=== PATIENT | female | born 1955 | race Caucasian/White ===

== ENCOUNTER 2017-06-06 21:42 | Inpatient (IN) | payer MEDICARE, OTHER ==
[~2017-06-06] VITALS: Ht 160 cm; Wt 59.6 kg
[~2017-06-06 21:42] MED LIST: ALBU90OI INH; ALENDRONATE SOD35 MG PO; AMIT50 PO; Accuneb0.63 MG/3 INH; BUDE6HFA INH; CHOL10002 PO; CIPR500 PO; CITA20 PO; CRUTCH4 USE; DULO60 PO; ERYSTE250 PO; FISH1000; Flonase 0.05% N16 GM; Fosamax70 MG PO; HYDACE5 PO; HYDGUAL120 PO; LOSA25 PO; LOSA50 PO; Lovastatin10 MG PO; MECL25 PO; MELO7.5 PO; Mobic15 MG PO; Multiple Vitam1 EAC1 PO; RESPIMAT; SULTRIDS PO; TRAM50 PO; VITAMIN D-32000 UNIT; Vitamin C100 M1
[2017-06-06 22:33] LABS: BASOPHILS ABSOLUTE AUTO 0.09 K/mm3 (0.00-0.23); BASOPHILS PERCENT AUTO 1 % (0-2); EOSINOPHILS ABSOLUTE AUTO 0.34 K/mm3 (0.00-0.68); EOSINOPHILS PERCENT AUTO 4 % (0-6); Hemoglobin 13.8 g/dL (11.5-16.0); IMMATURE GRAN ABSOLUTE AUTO 0.03 K/mm3 (0.00-0.10); IMMATURE GRAN PERCENT AUTO 0 % (0-1); LYMPHOCYTES PERCENT AUTO 20 % (21-46); MONOCYTES ABSOLUTE AUTO 0.81 K/mm3 (0.16-1.47); MONOCYTES PERCENT AUTO 8 % (4-13); Mean Corpuscular HGB 32.5 pg (26.0-34.0); Mean Corpuscular HGB Conc 33.7 g/dL (31.5-36.5); Mean Corpuscular Volume 97 fL (80-100); Mean Platelet Volume 10.6 fL (9.1-12.4); NEUTROPHILS PERCENT AUTO 67 % (41-73); Platelet Count 231 K/mm3 (150-400); RDW Coefficient Variation 12.8 % (11.7-14.2); RDW Standard Deviation 46.1 fL (35.1-46.3); Red Blood Cell Count 4.24 M/mm3 (3.80-5.20); White Blood Cell Count 9.67 K/mm3 (4.00-11.30)
[2017-06-06 22:58] LABS: Alanine Aminotransfer (ALT/SGP 23 U/L (12-78); Albumin/Globulin Ratio 1.1 (0.8-1.8); Alk Phos 100 U/L (50-136); Anion Gap 8 mmol/L (6-16); Aspartate Aminotrans (AST/SGOT 20 U/L (12-37); Bilirubin, Total 0.2 mg/dL (0.1-1.0); Blood Urea Nitrogen 12 mg/dL (8-24); Bun/Creatinine Ratio 17.3 (12.0-20.0); CO2, Blood 25 mmol/L (21-32); Calcium, Blood 8.5 mg/dL (8.5-10.1); Chloride, Blood 107 mmol/L (98-108); Creatinine, Blood 0.69 mg/dL (0.40-1.00); Globulin, Blood 3.7 g/dL (2.2-4.0); Glomerular Filtration Rate >60 (60-); Glucose, Blood 102 mg/dL (70-99); Potassium, Blood 3.4 mmol/L (3.5-5.5); Sodium, Blood 140 mmol/L (136-145); Total Protein, Blood 7.7 g/dL (6.4-8.2); Troponin I <0.015 ng/mL (0.000-0.040)
[2017-06-06] MEDS ORDERED: RANI150 PO (23:03)
[2017-06-06 23:49] LABS: Bicarbonate Venous 23.9 mmol/L (24.0-30.0); PCO2 Venous 36.7 mmHg (38-42); PO2 Venous 85.9 mmHg (38-42); pH Blood Venous 7.42 (7.34-7.37)
[2017-06-07 09:55] LABS: Influenza A Negative (NEGATIVE); Influenza B Negative (NEGATIVE)
[2017-06-07 11:31] LABS: BASOPHILS ABSOLUTE AUTO 0.02 K/mm3 (0.00-0.23); BASOPHILS PERCENT AUTO 0 % (0-2); EOSINOPHILS PERCENT AUTO 0 % (0-6); Hematocrit 40.7 % (33.0-51.0); Hemoglobin 13.4 g/dL (11.5-16.0); IMMATURE GRAN ABSOLUTE AUTO 0.06 K/mm3 (0.00-0.10); IMMATURE GRAN PERCENT AUTO 1 % (0-1); LYMPHOCYTES ABSOLUTE AUTO 0.68 K/mm3 (0.84-5.20); LYMPHOCYTES PERCENT AUTO 7 % (21-46); MONOCYTES ABSOLUTE AUTO 0.04 K/mm3 (0.16-1.47); MONOCYTES PERCENT AUTO 0 % (4-13); Mean Corpuscular HGB 31.5 pg (26.0-34.0); Mean Corpuscular HGB Conc 32.9 g/dL (31.5-36.5); Mean Corpuscular Volume 96 fL (80-100); Mean Platelet Volume 11.1 fL (9.1-12.4); NEUTROPHILS ABSOLUTE AUTO 9.07 K/mm3 (1.96-9.15); NEUTROPHILS PERCENT AUTO 92 % (41-73); Platelet Count 235 K/mm3 (150-400); RDW Standard Deviation 45.2 fL (35.1-46.3); Red Blood Cell Count 4.25 M/mm3 (3.80-5.20); White Blood Cell Count 9.87 K/mm3 (4.00-11.30)
[2017-06-07 12:28] LABS: Alanine Aminotransfer (ALT/SGP 22 U/L (12-78); Albumin, Blood 3.9 g/dL (3.4-5.0); Alk Phos 99 U/L (50-136); Anion Gap 13 mmol/L (6-16); Aspartate Aminotrans (AST/SGOT 16 U/L (12-37); Bilirubin, Total 0.3 mg/dL (0.1-1.0); Blood Urea Nitrogen 11 mg/dL (8-24); Bun/Creatinine Ratio 19.8 (12.0-20.0); CO2, Blood 18 mmol/L (21-32); Calcium, Blood 8.9 mg/dL (8.5-10.1); Chloride, Blood 110 mmol/L (98-108); Creatinine, Blood 0.56 mg/dL (0.40-1.00); Globulin, Blood 3.9 g/dL (2.2-4.0); Glomerular Filtration Rate >60 (60-); Glucose, Blood 171 mg/dL (70-99); Potassium, Blood 3.8 mmol/L (3.5-5.5); Sodium, Blood 141 mmol/L (136-145); Total Protein, Blood 7.8 g/dL (6.4-8.2)
[2017-06-08 04:49] LABS: BASOPHILS ABSOLUTE AUTO 0.01 K/mm3 (0.00-0.23); BASOPHILS PERCENT AUTO 0 % (0-2); EOSINOPHILS PERCENT AUTO 0 % (0-6); Hematocrit 38.4 % (33.0-51.0); Hemoglobin 12.6 g/dL (11.5-16.0); IMMATURE GRAN ABSOLUTE AUTO 0.09 K/mm3 (0.00-0.10); IMMATURE GRAN PERCENT AUTO 1 % (0-1); LYMPHOCYTES ABSOLUTE AUTO 0.92 K/mm3 (0.84-5.20); LYMPHOCYTES PERCENT AUTO 8 % (21-46); MONOCYTES ABSOLUTE AUTO 0.27 K/mm3 (0.16-1.47); MONOCYTES PERCENT AUTO 2 % (4-13); Mean Corpuscular HGB 32.1 pg (26.0-34.0); Mean Corpuscular HGB Conc 32.8 g/dL (31.5-36.5); Mean Corpuscular Volume 98 fL (80-100); Mean Platelet Volume 11.3 fL (9.1-12.4); NEUTROPHILS ABSOLUTE AUTO 10.23 K/mm3 (1.96-9.15); NEUTROPHILS PERCENT AUTO 89 % (41-73); Platelet Count 232 K/mm3 (150-400); RDW Coefficient Variation 12.8 % (11.7-14.2); RDW Standard Deviation 45.9 fL (35.1-46.3); Red Blood Cell Count 3.93 M/mm3 (3.80-5.20); White Blood Cell Count 11.52 K/mm3 (4.00-11.30)
[2017-06-08 05:16] LABS: Anion Gap 8 mmol/L (6-16); Blood Urea Nitrogen 11 mg/dL (8-24); Bun/Creatinine Ratio 20.9 (12.0-20.0); CO2, Blood 23 mmol/L (21-32); Calcium, Blood 9.1 mg/dL (8.5-10.1); Chloride, Blood 108 mmol/L (98-108); Creatinine, Blood 0.53 mg/dL (0.40-1.00); Glomerular Filtration Rate >60 (60-); Glucose, Blood 141 mg/dL (70-99); Potassium, Blood 3.7 mmol/L (3.5-5.5); Sodium, Blood 139 mmol/L (136-145)
[2017-06-08] MEDS ORDERED: AZIT250 PO (11:16)
[2017-06-08] MEDS ORDERED: DELTASONE20 MG PO (11:21)
== END 2017-06-08 12:35 | disposition home or self-care (01) | DRG 190 ==
LOC: ER 21:42 → ERHOLD 06-07 00:31 → SURS 06-07 00:31
PROVIDERS: Emergency Medicine; Hospitalist; Internal Medicine; Physician Assistant
DX: J44.1 Chronic obstructive pulmonary disease with (acute) exacerbation (principal); J96.01 Acute respiratory failure with hypoxia; J06.9 Acute upper respiratory infection, unspecified; I10 Essential (primary) hypertension; F32.9 Major depressive disorder, single episode, unspecified; F41.9 Anxiety disorder, unspecified; K21.9 Gastro-esophageal reflux disease without esophagitis; E78.5 Hyperlipidemia, unspecified; M81.0 Age-related osteoporosis without current pathological fracture; Z87.891 Personal history of nicotine dependence
CPT/HCPCS: 36415; 71046; 80048; 80053; 82803; 83880; 84484; 85025; 87070; 87205; 87804; 93005; 93010; 94640; 94644; 94760; 96365; 96366; 96375; 96376; 99285; J1650; J2001; J2920; J2930; J3480; J7050

== ENCOUNTER → 2019-05-15 | Outpatient (CLI) | payer MEDICARE, OTHER ==
[~2019-05-15] MED LIST changes: +ACET325S PO; +ALEN70 PO; +AZIT250 PO; +DELTASONE20 MG PO; +ESCI20 PO; +FLONASE ALLERG9.9 ML; +Flovent 220 Ora12 GM INH; +IBUP600 PO; +LEVO750 PO; +ONDA4ODT SL; +OYSTER SHELL C1 EAC2 PO; +SACC250C PO; +TRELEGY ELLIPT1 EACH IH; +TRELEGY ELLIPT1 EACH INH; +Zantac150 MG PO
== END | disposition home or self-care (01) ==
LOC: LAB SHORT 12:56 → LAB 12:56 → LAB FUT 05-11 10:45
DX: J44.9 Chronic obstructive pulmonary disease, unspecified (principal); R06.2 Wheezing
CPT/HCPCS: 87070; 87205

== ENCOUNTER → 2019-06-12 | Outpatient (CLI) | payer MEDICARE, OTHER | LOC: LAB 17:15 → LAB SHORT 17:15 | DX: R30.0 Dysuria (principal) | CPT/HCPCS: 87077; 87086; 87186 ==

== ENCOUNTER 2019-12-23 08:55 | Day surgery (SDC) | payer MEDICARE, OTHER ==
--- NOTE | 2019-12-09 09:15 | NUR ---
UNABLE TO BRING PTS PULSE UNDER 70 RADIOLOGY NOTIFIED BEFORE LAST DOSE OF LOPRESSOR RADIOLOGY DECIDED TO RESCHEDULE PROCEDURE DUE TO PT USE OF ALBUTEROL BEFORE PROCEDURE. IV DCD CATH INTACT PT UNDERSTOOD 929 PT DCD DENIES DIZZINESS AND WAS HEADED TO GO RESCHEDULE CTA VSS PT ALERT AND AMBULATORY
--- NOTE | 2019-12-23 09:15 | NUR ---
PT TRANFERRED TO UNIT VIA WHEELCHAIR; PT WEIGHED, VS COMMENCED. PERIPHERAL IV STARTED R ANTECUBITAL. HEART R/R STABLE; PT REQUIRES IV LOPRESSOR TO ACHIEVE THERAPEUTIC HR OF <70
--- NOTE | 2019-12-23 10:05 | NUR ---
TRANSPORTED PT TO RADIOLOGY VIA STRETCHER; PT TRANSFERRED HERSELF TO CT TABLE, VS TAKEN AND STABLE. 3RD AND FINAL DOSE OF IV METOPROLOL PROVIDED WITH HR 64 FOLLOWING ADMINISTRATION, BP 121/80
--- NOTE | 2019-12-23 10:39 | NUR ---
PERIPHERAL IV REMOVED WNL. PT PROVIDED WITH DC INSTRUCTIONS AND STATES UNDERSTANDING. PT IS CALLING HER SON FOR JUNIOR PROJECT MANAGER. IMMEDIATELY FOLLOWING CTA, PT USED HER OWN INHALER. PT STATES SHE HAS BREATHING TREATMENTS IN HER CAR. NO SOB, RR 16-18, PT IS ABLE TO SPEAK, DENIES BREATHING DIFFICULTY.
== END 2019-12-23 22:49 | disposition home or self-care (01) ==
LOC: CT 08:55 → ORD 08:55
DX: R07.89 Other chest pain (principal); I10 Essential (primary) hypertension; E78.5 Hyperlipidemia, unspecified; F41.9 Anxiety disorder, unspecified; F32.9 Major depressive disorder, single episode, unspecified; K21.9 Gastro-esophageal reflux disease without esophagitis; J43.9 Emphysema, unspecified; H40.9 Unspecified glaucoma; H26.9 Unspecified cataract; G89.29 Other chronic pain; M54.9 Dorsalgia, unspecified; M81.0 Age-related osteoporosis without current pathological fracture; D64.9 Anemia, unspecified; R09.02 Hypoxemia; Z79.51 Long term (current) use of inhaled steroids; Z79.52 Long term (current) use of systemic steroids; Z79.899 Other long term (current) drug therapy; Z87.891 Personal history of nicotine dependence; Z88.0 Allergy status to penicillin; Z99.81 Dependence on supplemental oxygen
CPT/HCPCS: 75574; Q9967

== ENCOUNTER 2020-08-05 20:38 | Inpatient (IN) | payer MEDICARE, OTHER ==
[~2020-08-05] VITALS: Ht 167.6 cm; Wt 70.8 kg
[~2020-08-05 20:38] MED LIST changes: +VITAMIN D31000 UNI1 PO
[2020-08-05 20:57] LABS: PCO2 Arterial 45.5 mmHg (35-45); PO2 Arterial 117 mmHg (80-100); pH Blood Arterial 7.34 (7.35-7.45)
[2020-08-05 20:57] LABS: BASOPHILS PERCENT AUTO 1 % (0-2); EOSINOPHILS ABSOLUTE AUTO 0.23 K/mm3 (0.00-0.68); EOSINOPHILS PERCENT AUTO 3 % (0-6); Hematocrit 43.8 % (33.0-51.0); Hemoglobin 14.4 g/dL (11.5-16.0); IMMATURE GRAN ABSOLUTE AUTO 0.03 K/mm3 (0.00-0.10); IMMATURE GRAN PERCENT AUTO 0 % (0-1); LYMPHOCYTES ABSOLUTE AUTO 2.45 K/mm3 (0.84-5.20); LYMPHOCYTES PERCENT AUTO 28 % (21-46); MONOCYTES ABSOLUTE AUTO 0.69 K/mm3 (0.16-1.47); MONOCYTES PERCENT AUTO 8 % (4-13); Mean Corpuscular HGB 32.2 pg (26.0-34.0); Mean Corpuscular HGB Conc 32.9 g/dL (31.5-36.5); Mean Corpuscular Volume 98 fL (80-100); Mean Platelet Volume 11.5 fL (9.1-12.4); NEUTROPHILS ABSOLUTE AUTO 5.21 K/mm3 (1.96-9.15); NEUTROPHILS PERCENT AUTO 60 % (41-73); Platelet Count 250 K/mm3 (150-400); RDW Coefficient Variation 13.2 % (11.7-14.2); RDW Standard Deviation 47.6 fL (35.1-46.3); Red Blood Cell Count 4.47 M/mm3 (3.80-5.20); White Blood Cell Count 8.71 K/mm3 (4.00-11.30)
[2020-08-05 21:17] LABS: Alanine Aminotransfer (ALT/SGP 33 U/L (12-78); Albumin, Blood 4.4 g/dL (3.4-5.0); Albumin/Globulin Ratio 1.4 (0.8-1.8); Alk Phos 93 U/L (50-136); Anion Gap 5 mmol/L (6-16); Aspartate Aminotrans (AST/SGOT 27 U/L (12-37); Bilirubin, Total 0.6 mg/dL (0.1-1.0); Blood Urea Nitrogen 9 mg/dL (8-24); Bun/Creatinine Ratio 12.8 (12.0-20.0); CO2, Blood 26 mmol/L (21-32); Calcium, Blood 9.1 mg/dL (8.5-10.1); Chloride, Blood 111 mmol/L (98-108); Globulin, Blood 3.2 g/dL (2.2-4.0); Glomerular Filtration Rate >60 (60-); Glucose, Blood 118 mg/dL (70-99); Potassium, Blood 3.9 mmol/L (3.5-5.5); Sodium, Blood 142 mmol/L (136-145); Total Protein, Blood 7.6 g/dL (6.4-8.2); Troponin I <0.015 ng/mL (0.000-0.040)
[2020-08-05] MEDS ORDERED: SERT50 PO (22:43)
[2020-08-05] MEDS ORDERED: Aspir 8181 MG PO (22:44)
[2020-08-06] MEDS ORDERED: CALCIUM PO (01:32)
[2020-08-06] MEDS ORDERED: ATORVASTATIN CA20 MG PO (01:37)
[2020-08-06] MEDS ORDERED: BUSPIRONE HCL10 M2 PO (01:40)
[2020-08-06] MEDS ORDERED: ZOLOFT25 MG PO (01:40)
[2020-08-06] MEDS ORDERED: FAMO20 PO (01:41)
[2020-08-06 02:45] LABS: SARS-Cov-2 (COVID-19) PCR, MMC NEGATIVE (NEGATIVE)
[2020-08-06 04:12] LABS: BASOPHILS ABSOLUTE AUTO 0.04 K/mm3 (0.00-0.23); BASOPHILS PERCENT AUTO 0 % (0-2); EOSINOPHILS PERCENT AUTO 0 % (0-6); Hematocrit 40.3 % (33.0-51.0); Hemoglobin 13.6 g/dL (11.5-16.0); IMMATURE GRAN ABSOLUTE AUTO 0.04 K/mm3 (0.00-0.10); IMMATURE GRAN PERCENT AUTO 0 % (0-1); LYMPHOCYTES ABSOLUTE AUTO 0.55 K/mm3 (0.84-5.20); LYMPHOCYTES PERCENT AUTO 6 % (21-46); MONOCYTES ABSOLUTE AUTO 0.05 K/mm3 (0.16-1.47); MONOCYTES PERCENT AUTO 1 % (4-13); Mean Corpuscular HGB 32.5 pg (26.0-34.0); Mean Corpuscular HGB Conc 33.7 g/dL (31.5-36.5); Mean Corpuscular Volume 96 fL (80-100); Mean Platelet Volume 11.6 fL (9.1-12.4); NEUTROPHILS ABSOLUTE AUTO 8.58 K/mm3 (1.96-9.15); NEUTROPHILS PERCENT AUTO 93 % (41-73); Platelet Count 203 K/mm3 (150-400); RDW Coefficient Variation 13.2 % (11.7-14.2); RDW Standard Deviation 46.5 fL (35.1-46.3); Red Blood Cell Count 4.19 M/mm3 (3.80-5.20); White Blood Cell Count 9.26 K/mm3 (4.00-11.30)
[2020-08-06 04:40] LABS: Anion Gap 8 mmol/L (6-16); Blood Urea Nitrogen 11 mg/dL (8-24); Bun/Creatinine Ratio 18.9 (12.0-20.0); CO2, Blood 23 mmol/L (21-32); Calcium, Blood 8.6 mg/dL (8.5-10.1); Chloride, Blood 109 mmol/L (98-108); Creatinine, Blood 0.58 mg/dL (0.40-1.00); Glomerular Filtration Rate >60 (60-); Glucose, Blood 145 mg/dL (70-99); Potassium, Blood 3.8 mmol/L (3.5-5.5); Sodium, Blood 140 mmol/L (136-145)
--- NOTE | 2020-08-06 06:40 | NUR ---
SHIFT SUMMARY PT ANXIOUS ON ARRIVAL FROM ED, PER REPORT FROM ER NURSE, PT HAD BEEN TOLERATING OFF BIPAP PRIOR TO AND DURING TRANSFER TO UNIT. PT SATS 93-95% ON 3 L VIA NC. SR/ST ON MONITOR. STATES HAVING OCCASIONAL CP, HAS DENIED CP FOR THIS RN. WHEN PT ASSISTS IN CHANGING INTO GOWN, PT BECOMES INCREASINGLY SOB. PT CALMED DURING DISCUSSIONS DURING ADMISSION ASSESSMENT AND CHARTING AT BEDSIDE. RESTFUL T/O SHIFT. PT BECOMES ANXIOUS ON THIS RN AWAKENING PT FOR DOSE OF SOLUMEDROL, PT ATTEMPTS TO REPOSITION IN BED, BECOMES SOB AND ANXIOUS, C/O FEELING TOO HOT IN ROOM. THIS RN GUIDES PT WITH VERBAL REASSURANCE AND BREATHING TECHNIQUE. PT SATS 94-95% ON 3 L VIA NC. FAN BROUGHT TO ROOM, MAINTENANCE REQUEST TO ADJUST TEMP IN ROOM FOR PT. VSS. RT CALLED FOR BREATHING TX FOR PT AT THIS TIME.
--- NOTE | 2020-08-06 08:00 | NUR ---
pt laying in bed speaking on the phone, a/ox3, pleasant and cooperative with care, follows commands well, denies pain, lungs are dim with exp wheeze t/o, resp even and unlabored, no cough noted, hrr, tele in place running sr to st per monitor, see strip, no edema noted, ppp+2, cap refill <3sec, vs stable, afebrile, piv is clear and patent, bt x4, abd flat soft nontender, voids without diff, skin c/w/d, maew, morgan, call light in reach.
--- NOTE | 2020-08-06 13:13 | NUR ---
called report to Ash OLGUIN, will take pt to medical floor with boarding kennel or cattery operator in attendence and all her belongings.
--- NOTE | 2020-08-06 14:22 | NUR ---
VERY ANXIOUS, VSS BUT STILL SHE FELT SOB, DISTRACTED HER BY TALKING ABOUT NARINDER (HER DOG) AND SHE STATED SHE WAS FINE, DISCUSSED HOW ANXIETY BUILDS ON ITSELF AND NEED TO FOCUS ON OTHER THINGS, CURRENLY LOOKING OUT THE WINDOW WATCHING THE BIRDS AND FEELING BETTER, WILL CONTINUE TO MONITOR AND TREAT PRESCRIBED
--- NOTE | 2020-08-06 16:08 | NUR ---
arrived from pcu, hx of sob, all oximeter checks have shown her to be above 90% but anxiety makes her sob, have been working her 02 down, started at 3L, currently on rm air, rt in to assist pt, call light in reach, saline locked, doing much better with panoramic view.
[2020-08-07 04:29] LABS: PCO2 Arterial 43.8 mmHg (35-45); PO2 Arterial 72.5 mmHg (80-100); pH Blood Arterial 7.37 (7.35-7.45)
--- NOTE | 2020-08-07 05:51 | NUR ---
SHIFT SUMMARY: VSS. AFEB. AAOX3. COMMUNICATES NEEDS. 02 SAT REMAINS >92% ON BOTH RA AND 2L VIA. BRONCHIAL WHEEZING AUSCULTATED W/ DIM LS. PT PLACES NC FOR COMFORT. EXERTIONAL DYSPNEA. RESP RISE EQUAL. PT BECOMES ANXIOUS WHEN SOB. BENEFITS FROM COACHING AND VERBAL CUES TO TRY TO STAY CALM AND FOCUS ON SLOW, DEEP BREATHS. STATES SHE SLEPT WELL. 1 ASSIST TO BATHROOM TO HELP MANAGE LINES. NO ACUTE OVERNIGHT EVENTS. WCTM.
[2020-08-07 06:11] LABS: Albumin, Blood 4.1 g/dL (3.4-5.0); Anion Gap 8 mmol/L (6-16); Blood Urea Nitrogen 15 mg/dL (8-24); Bun/Creatinine Ratio 25.4 (12.0-20.0); CO2, Blood 24 mmol/L (21-32); Calcium, Blood 8.9 mg/dL (8.5-10.1); Chloride, Blood 106 mmol/L (98-108); Creatinine, Blood 0.59 mg/dL (0.40-1.00); Glomerular Filtration Rate >60 (60-); Glucose, Blood 165 mg/dL (70-99); Phosphorus, Blood 2.3 mg/dL (2.5-4.9); Potassium, Blood 3.8 mmol/L (3.5-5.5); Sodium, Blood 138 mmol/L (136-145)
--- NOTE | 2020-08-07 17:50 | NUR ---
SHIFT SUMMARY- PT IS A/O, PLESANT, AND COOPERATIVE. SHE IS EATING AND DRINKING WELL. SHE IS RECIEVNG IV STEROIDS. SHE IS WORKING WITH RT AND RECIEVING BREATHING TREATMENT. SHE WAS GIVEN A FLUTTER VALVE AND HAS BEEN USING IT. SHE IS HAVING DIFFICULTY CATCHING HER BREATH AFTER AMBULATION, BUT HER SATS ARE MAINTAINING. HER BED IS IN THE LOW POSITION AND CALL LIGHT IS WITHIN REACH.
--- NOTE | 2020-08-08 04:22 | NUR ---
CALL TO HOSPITALIST / RESP DISTRESS PER RT PT WOKE UP IN RESP DISTRESS. GIVEN 2 NEB TX WITH LITTLE IMPROVEMENT IN WOB. WHEEZE AUSCULTATED BILATERALLY W/ FAINT CRACKLES AT THE BASES. PT SITTING IN A TRIPOD POSITION. RT TITRATED O2 AND ENDED UP PLACING BIPAP. SPOKE W/ DR. CORDON, RECEIVED NEW ORDER FOR LASIX 40MG IV X 1 AND OK TO GIVE NEXT SOLUMEDROL DOSE NOW. GIVEN. PT WOB IS NOW IMPROVED. CURRENTLY ON BIPAP W/ 2L BLEED IN. 02 SATS 93%. RESPS EVEN. PT IS NOW ABLE TO SPEAK. WCTM CLOSELY.
--- NOTE | 2020-08-08 05:12 | NUR ---
SHIFT SUMMARY: MOSTLY GOOD NIGHT. MAINTAINING 02 SATS WNL W/ 02 ON. WOB BETTER OR WORSE DEPENDING ON WHETHER PT IS ACTIVE OR NOT. CURRENTLY WEARING BIPAP W/ 2L 02 BLEED IN, SITTING UPRIGHT AND BREATHING EVENLY, NON-LABORED. OCCASIONAL FORCEFUL AND HACKING COUGH DURING WHICH PT STRUGGLES TO CLEAR SECRETIONS. DEMONSTRATED USE OF FLUTTER VALVE. UP TO BSC W/ 1 ASSIST. WCTM CLOSELY. CONT BIOX IN PLACE.
[2020-08-08 05:38] LABS: Albumin, Blood 4.3 g/dL (3.4-5.0); Anion Gap 9 mmol/L (6-16); Blood Urea Nitrogen 14 mg/dL (8-24); Bun/Creatinine Ratio 23.8 (12.0-20.0); CO2, Blood 25 mmol/L (21-32); Chloride, Blood 103 mmol/L (98-108); Creatinine, Blood 0.59 mg/dL (0.40-1.00); Glomerular Filtration Rate >60 (60-); Glucose, Blood 134 mg/dL (70-99); Phosphorus, Blood 2.5 mg/dL (2.5-4.9); Potassium, Blood 3.7 mmol/L (3.5-5.5); Sodium, Blood 137 mmol/L (136-145)
--- NOTE | 2020-08-08 16:29 | NUR ---
SHIFT SUMMARY- PT IS A/O, PLESANT AND COOPERATIVE. SHE IS EATING AND DRINKING WELL. SHE IS WORKING WITH RT AND RECIEVING BREATHING TREATMENTS. PRN ANXIETY MEDICATION WERE ADDED THIS SHIFT. HER SON AND HIS GIRLFRIEND VISITED THIS AFTERNOON. HER BED IS IN THE LOW POSTION AND CALL LIGHT IS WITHIN REACH.
--- NOTE | 2020-08-09 04:26 | NUR ---
SHIFT SUMMARY: VSS. AFEB. AA0X4. COMMUNICATES NEEDS. 02 SATS WNL ON 2L VIA NC. NO RESP DISTRESS. EXERTIONAL DYSPNEA. OCC COUGH PRODUCING YELLOW/CLEAR SPUTUM. PT USING FLUTTER VALVE. T/F W/ 1 ASSIST TO BSC. PT STATES SHE PLANS TO GET UP INTO CHAIR TODAY. MOTIVATED YET EXPRESSES ANXIETY RE: COPD. NO ACUTE OVERNIGHT EVENTS. WCTM.
[2020-08-09 05:37] LABS: Albumin, Blood 3.8 g/dL (3.4-5.0); Anion Gap 5 mmol/L (6-16); Blood Urea Nitrogen 15 mg/dL (8-24); Bun/Creatinine Ratio 23.8 (12.0-20.0); CO2, Blood 30 mmol/L (21-32); Calcium, Blood 8.6 mg/dL (8.5-10.1); Chloride, Blood 101 mmol/L (98-108); Creatinine, Blood 0.63 mg/dL (0.40-1.00); Glomerular Filtration Rate >60 (60-); Glucose, Blood 158 mg/dL (70-99); Phosphorus, Blood 3.2 mg/dL (2.5-4.9); Potassium, Blood 3.6 mmol/L (3.5-5.5); Sodium, Blood 136 mmol/L (136-145)
--- NOTE | 2020-08-09 15:26 | NUR ---
SHIFT SUMMARY PT WOKE THIS AM FOR BS REPORT. A&O, PLEASANT AND CO-OP. ADMITTED FOR COPD EXAC. PT CURRENTLY ON 2L O2 VIA NC. PT REPORTED THAT SHE NORMALLY ONLY USES O2 AT HS. PT ON FL DIET AT START OF SHIFT, WANTING DIET INCREASED. DISCUSSED WITH DR RANDOLPH. DIET ORDER CHANGED. PT LATER REPORTED HIATAL HERNIA WITH DIFFICULTY SWALLOWING. SWALLOW EVAL ORDERED PER PT REQUEST. PT UP TO CHAIR AT BS AFTER BREAKFAST AND AGAIN AFTER LUNCH. [facility]. PT BECOMING SOB WITH EXERTION, SITTING ON EOB TO RECOVER AFTER COMING BACK. PT TRYING TO BECOME MORE MOBILE IN ORDER TO GO BACK HOME. PT/OT EVAL ORDERED TODAY WELL. RESTING QUIETLY WATCHING TV. CALL LT IN REACH. ABLE TO MAKE NEEDS KNOWN.
--- NOTE | 2020-08-09 21:01 | NUR ---
ASSUMPTION OF CARE. AOX3. HAD BREATHING TX DURING ASSESSMENT. LS EXPIRATORY WHEEZES T/O, TIGHT IN BASES. DYSPNEA WITH TALKING AND EXERTION. COUGH PRODUCTIVE WHITE CLEAR SPUTUM. NOSE BLEED DUE TO DRYNESS. GAVE [place] FOR NOSE. DENIED WANTING HUMITIFIER. DAY OFF AND ON ESPECIALLY AFTER GETTING NEBULIZER. TYLENOL GIVEN. APPETITE FAIR, PUDDING GIVEN. DENIES ANY OTHER CONCERNS. CALL LIGHT IN REACH.
--- NOTE | 2020-08-10 04:58 | NUR ---
SHIFT SUMMARY: AOX3, 1 ASSIST TO THE BATHROOM. LS WITH EXPIRATORY WHEEZES T/O, TIGHT. OFF AND ON DAY. TYELNOL TO RELIEVE. COUGH PRODUCTIVE WHITE SPUTUM. NOSE BLEED DUE TO DRYNESS, GAVE MOISTURIZER. SATS REMAINED >90% ON 2 LITERS T/O NOC. REPORTS RIGHT SIDED CHEST PAIN WITH DEEP BREATHING OFF AND ON. SHARP TO DULL. USES FLUTTER VALVE. SOB UNCHANGED. FAIR APPETITE. SLEPT OFF AND ON. VSS/AFEBRILE. CALL LIGHT IN REACH AND USED APPROPRIATLY.
--- NOTE | 2020-08-10 12:51 | NUR ---
SHIFT SUMMARY PT AWAKE AND SITTING IN CHAIR AT BS AT START OF SHIFT. REPORTED FEELING A LITTLE BETTER. LUNGS T/O STILL WHEEZY, BUT LESS THAN YESTERDAY. PT ABLE TO WORK WITH P/T TODAY. AND THEN UP TO SHOWER AFTER A SHORT REST ON THE EOB. PT STILL BECOMING SOB WITH EXERTION, BUT IMPROVING SLOWLY. DR RANDOLPH HERE TO SEE PT THIS AM; WILL RE-EVALUATE PT AGAIN TOMORROW. SWALLOW EVAL DONE TODAY. PT GIVEN INFO TO HELP WHEN EATING AND FEELING SOB. SITTING IN CHAIR AT BS, WATCHING TV. DENIES FURTHER NEEDS AT THIS TIME.
--- NOTE | 2020-08-10 19:24 | NUR ---
ASSUMED CARE. AOX3, "I FEEL BETTER TODAY, HOPE TO GO HOME TOMORROW". LS WITH VERY FINE CRACKLES VS PLEURAL RUB, DIFFICULT TO DETERMINE. COUGH HAS DECREASED. SECREATIONS HAVE DECREASED. PAIN STILL IN THE UPPER LEFT CHEST AREA WITH DEEP BREATHING. ENCOURAGED FLUTTER VALVE. RT CURRENTLY IN ROOM GIVING BREATHING TX. CALL LIGHT IN REACH.
--- NOTE | 2020-08-11 06:29 | NUR ---
SHIFT SUMMARY: AOX3, COOPERATIVE. DOING BETTER. HUMITIFIER APPLIED TO O2 DUE TO NOSE BLEEDS. ENCOURAGED HER TO ASK FOR A PRESCRIPTION FROM MD ON DISCHARGE FOR THIS AT HOME. LUNG SOUNDS ARE IMPROVED DIMINSHED WITH OCCATIONAL WHEEZES. SOB WITH SOME EXERTION. SATS HAVE REMAINED ABOVE 90% ON 2 LITERS. COUGH HAS DECREASED LESS SECREATIONS. NO PAIN THIS SHIFT. GOOD APPETITE. VSS/AFEBRILE. NO OTHER CHANGES TO NOTE. CALL LIGHT IS IN REACH.
[2020-08-11] MEDS ORDERED: PRED20 PO (13:53)
[2020-08-11] MEDS ORDERED: GUAI600T33 PO (13:53)
--- NOTE | 2020-08-11 14:45 | NUR ---
PT DISCHARGE REVIEWED WITH PT. PT VERBALIZED UNDERSTNDING MEDS AND INST. IV PULLED INTACT. NO TELE. PT FAMILY HERE AND WHEELED TO DOOR AT 1530
== END 2020-08-11 15:53 | disposition home health service (06) | DRG 189 ==
LOC: ER 20:38 → PCU 22:30 → ER 22:30 → PCU 08-06 00:45 → MEDS 08-06 13:16 → PCU 08-06 13:47 → MEDS 08-06 13:47
PROVIDERS: Emergency Medicine; Internal Medicine; Nurse Practitioner Acute Care; ADMIT Internal Medicine
PROC: 5A09457 Assistance with Respiratory Ventilation, 24-96 Consecutive Hours, Continuous Positive Airway Pressure (ICD-10-PCS; principal; 2020-08-06)
PROC: 3E0234Z Introduction of Serum, Toxoid and Vaccine into Muscle, Percutaneous Approach (ICD-10-PCS; 2020-08-06)
DX: J96.21 Acute and chronic respiratory failure with hypoxia (principal); E78.5 Hyperlipidemia, unspecified; J43.9 Emphysema, unspecified; Z20.822 Contact with and (suspected) exposure to COVID-19; F41.9 Anxiety disorder, unspecified; H40.9 Unspecified glaucoma; G89.29 Other chronic pain; M54.9 Dorsalgia, unspecified; R51.9 Headache, unspecified; F32.9 Major depressive disorder, single episode, unspecified; K21.9 Gastro-esophageal reflux disease without esophagitis; Z23 Encounter for immunization; M19.09 Primary osteoarthritis, other specified site; M81.0 Age-related osteoporosis without current pathological fracture; I10 Essential (primary) hypertension; Z91.040 Latex allergy status; Z88.0 Allergy status to penicillin; Z90.89 Acquired absence of other organs; Z98.890 Other specified postprocedural states; Z90.721 Acquired absence of ovaries, unilateral; Z87.891 Personal history of nicotine dependence; Z90.710 Acquired absence of both cervix and uterus; Z85.41 Personal history of malignant neoplasm of cervix uteri; Z79.51 Long term (current) use of inhaled steroids; Z79.899 Other long term (current) drug therapy
CPT/HCPCS: 36415; 36600; 71045; 80048; 80053; 80069; 82803; 83605; 83880; 84484; 85025; 90732; 92610; 93005; 93010; 94640; 94644; 94660; 94667; 94668; 94761; 94762; 96365; 96366; 96375; 96376; 97110; 97162; 97165; 97530; 97535; 99285-25; A9270; G0009; G0378; J1650; J1940; J2930; J3475; J7512; U0004

== ENCOUNTER 2022-04-03 13:18 | Inpatient (IN) | payer MEDICARE, OTHER ==
[~2022-04-03] VITALS: Ht 160 cm; Wt 69.0 kg
[~2022-04-03 13:18] MED LIST changes: +ATORVASTATIN CA20 MG PO; +Aspir 8181 MG PO; +BUSPIRONE HCL10 M2 PO; +CALCIUM PO; +FAMO20 PO; +GUAI600T33 PO; +PRED20 PO; +SERT50 PO; +SULTRISS PO; +ZOLOFT25 MG PO
[2022-04-03 13:57] LABS: BASOPHILS ABSOLUTE AUTO 0.06 K/mm3 (0.00-0.23); BASOPHILS PERCENT AUTO 1 % (0-2); EOSINOPHILS ABSOLUTE AUTO 0.26 K/mm3 (0.00-0.68); EOSINOPHILS PERCENT AUTO 4 % (0-6); Hematocrit 41.5 % (33.0-51.0); Hemoglobin 14.4 g/dL (11.5-16.0); IMMATURE GRAN ABSOLUTE AUTO 0.02 K/mm3 (0.00-0.10); IMMATURE GRAN PERCENT AUTO 0 % (0-1); LYMPHOCYTES ABSOLUTE AUTO 1.83 K/mm3 (0.84-5.20); LYMPHOCYTES PERCENT AUTO 27 % (21-46); MONOCYTES ABSOLUTE AUTO 0.49 K/mm3 (0.16-1.47); MONOCYTES PERCENT AUTO 7 % (4-13); Mean Corpuscular HGB Conc 34.7 g/dL (31.5-36.5); Mean Corpuscular Volume 92 fL (80-100); Mean Platelet Volume 11.6 fL (9.1-12.4); NEUTROPHILS ABSOLUTE AUTO 4.01 K/mm3 (1.96-9.15); NEUTROPHILS PERCENT AUTO 60 % (41-73); Platelet Count 196 K/mm3 (150-400); RDW Coefficient Variation 12.3 % (11.7-14.2); White Blood Cell Count 6.67 K/mm3 (4.00-11.30)
[2022-04-03 13:58] LABS: Base Excess Venous 1.6 mmol/L; Bicarbonate Venous 25.3 mmol/L (24.0-30.0); PCO2 Venous 45.1 mmHg (38-42); pH Blood Venous 7.38 (7.34-7.37)
[2022-04-03 14:34] LABS: Albumin/Globulin Ratio 1.3 (0.8-1.8); Bilirubin, Total 0.6 mg/dL (0.1-1.0); Bun/Creatinine Ratio 16.1 (12.0-20.0); Calcium, Blood 8.7 mg/dL (8.5-10.1); Creatinine, Blood 0.62 mg/dL (0.40-1.00); Globulin, Blood 3.1 g/dL (2.2-4.0); Potassium, Blood 3.8 mmol/L (3.5-5.5); Total Protein, Blood 7.1 g/dL (6.4-8.2)
[2022-04-03 17:23] LABS: Influenza A, PCR NEGATIVE (NEGATIVE); Influenza B, PCR NEGATIVE (NEGATIVE); Resp Syncytial Virus, PCR NEGATIVE (NEGATIVE); SARS-Cov-2 (COVID-19) PCR, MMC NEGATIVE (NEGATIVE)
--- NOTE | 2022-04-03 22:40 | NUR ---
PT ARRIVED TO MEDICAL FLOOR VIA GURNEY AT 2215. TRANSFERRED VIA 1 PERSON ASSIST TO BED WITH INCREASED SOB AND HEART RATE. ORIENTED TO CALL SYSTEM AND ROOM. CALL LIGHT WITHIN REACH. WAS UP TO SIDE OF BED AND WAS INCREASINGLY SOB. RECOVERS WITHIN 3 TO 4 MINUTES.
[2022-04-03] MEDS ORDERED: LORA.5 PO (22:46)
--- NOTE | 2022-04-04 05:00 | NUR ---
PT A&O X 4. PLEASANT AND COOPERATIVE WITH CARE. DENIES ANY COMPLAINTS. GETS INCREDIBLY SOB WITH ANY ACTIVITY. STATED "EVEN USING THE BEDPAN MADE ME SHORT OF BREATH". WILL CONTINUE TO MONITOR AND PROVIDE CARE THROUGHOUT SHIFT AND REPORT TO ONCOMING NURSE.
[2022-04-04 05:18] LABS: BASOPHILS ABSOLUTE AUTO 0.01 K/mm3 (0.00-0.23); BASOPHILS PERCENT AUTO 0 % (0-2); EOSINOPHILS PERCENT AUTO 0 % (0-6); Hematocrit 39.4 % (33.0-51.0); Hemoglobin 13.5 g/dL (11.5-16.0); IMMATURE GRAN ABSOLUTE AUTO 0.03 K/mm3 (0.00-0.10); IMMATURE GRAN PERCENT AUTO 0 % (0-1); LYMPHOCYTES ABSOLUTE AUTO 0.75 K/mm3 (0.84-5.20); LYMPHOCYTES PERCENT AUTO 10 % (21-46); MONOCYTES ABSOLUTE AUTO 0.05 K/mm3 (0.16-1.47); MONOCYTES PERCENT AUTO 1 % (4-13); Mean Corpuscular HGB 31.7 pg (26.0-34.0); Mean Corpuscular HGB Conc 34.3 g/dL (31.5-36.5); Mean Corpuscular Volume 93 fL (80-100); NEUTROPHILS PERCENT AUTO 89 % (41-73); Platelet Count 207 K/mm3 (150-400); RDW Coefficient Variation 12.5 % (11.7-14.2); RDW Standard Deviation 42.5 fL (35.1-46.3); Red Blood Cell Count 4.26 M/mm3 (3.80-5.20); White Blood Cell Count 7.84 K/mm3 (4.00-11.30)
[2022-04-04 05:45] LABS: Albumin/Globulin Ratio 1.3 (0.8-1.8); Bilirubin, Total 0.3 mg/dL (0.1-1.0); Bun/Creatinine Ratio 17.6 (12.0-20.0); Creatinine, Blood 0.63 mg/dL (0.40-1.00); Globulin, Blood 3.1 g/dL (2.2-4.0); Potassium, Blood 3.9 mmol/L (3.5-5.5); Total Protein, Blood 7.1 g/dL (6.4-8.2)
--- NOTE | 2022-04-04 19:30 | NUR ---
SHIFT SUMMARY A&O X 4. VSS. ON 3 L'S O2 WITH SATS >90%. IMPROVING WITH NO LONGER BEING SOB WITH EXERTION. IS ABLE TO GET UP TO BSC. IS PLEASANT & COOPERATIVE WITH ALL CARE. APPETITE IS GOOD. IV INTACT & PATENT. TELE SHOWS NSR/ST, NO ECTOPY.
--- NOTE | 2022-04-05 04:39 | NUR ---
SHIFT SUMMARY PT HAS RESTED COMFORTABLY TONIGHT WITHOUT ANY C/O PAIN, N/V/D. CONTINUES ON 3L O2 AT THIS TIME. WAS UP TO BSC EARLIER THIS SHIFT WITH SOME SOB, BUT RECOVERED QUICKLY ONCE BACK IN BED. WILL CONTINUE TO MOPNITOR AND PROVIDE CARE AND REPORT TO ONCOMING RN.
[2022-04-05 05:18] LABS: BASOPHILS ABSOLUTE AUTO 0.01 K/mm3 (0.00-0.23); BASOPHILS PERCENT AUTO 0 % (0-2); EOSINOPHILS PERCENT AUTO 0 % (0-6); Hemoglobin 12.7 g/dL (11.5-16.0); IMMATURE GRAN ABSOLUTE AUTO 0.11 K/mm3 (0.00-0.10); IMMATURE GRAN PERCENT AUTO 1 % (0-1); LYMPHOCYTES ABSOLUTE AUTO 0.74 K/mm3 (0.84-5.20); LYMPHOCYTES PERCENT AUTO 5 % (21-46); MONOCYTES PERCENT AUTO 3 % (4-13); Mean Corpuscular HGB 31.4 pg (26.0-34.0); Mean Corpuscular HGB Conc 33.4 g/dL (31.5-36.5); Mean Corpuscular Volume 94 fL (80-100); Mean Platelet Volume 12.4 fL (9.1-12.4); NEUTROPHILS ABSOLUTE AUTO 14.15 K/mm3 (1.96-9.15); NEUTROPHILS PERCENT AUTO 92 % (41-73); Platelet Count 214 K/mm3 (150-400); RDW Coefficient Variation 12.6 % (11.7-14.2); RDW Standard Deviation 43.5 fL (35.1-46.3); Red Blood Cell Count 4.04 M/mm3 (3.80-5.20); White Blood Cell Count 15.41 K/mm3 (4.00-11.30)
[2022-04-05 05:45] LABS: Bun/Creatinine Ratio 24.8 (12.0-20.0); Calcium, Blood 9.1 mg/dL (8.5-10.1); Creatinine, Blood 0.69 mg/dL (0.40-1.00); Potassium, Blood 4.2 mmol/L (3.5-5.5)
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
--- NOTE | 2022-04-05 16:45 | NUR ---
LUNG SOUNDS ASSESSED AGAIN PATIENT WAS SITTING UP. VERY WHEEZY THIS AFTERNOON, WITH EXPIRATION. PATIENT WAS JUST UP TO BSC SO SHE IS MORE SOB AT THIS TIME, WITH SOME PRESSURE.
--- NOTE | 2022-04-05 18:21 | NUR ---
LUNGS WHEEZY, ESPECIALLY AFTER ACTIVITY. CO NOSE BEING DRY. WILL START HUMIDITY. PATIENT STATES OTHER THAN SOB, SHE FEELS OKAY. DENIES STABBING PAIN IN CHEST LIKE SHE WAS EXPERIENCING YESTERDAY. HAD SOME PRESSURE IN LUNG AFTER ACTIVITY. ALERT AND ORIENTATED. UP TO COMMODE WITH ASSIST.
[2022-04-06 05:09] LABS: BASOPHILS ABSOLUTE AUTO 0.01 K/mm3 (0.00-0.23); BASOPHILS PERCENT AUTO 0 % (0-2); EOSINOPHILS PERCENT AUTO 0 % (0-6); Hematocrit 38.7 % (33.0-51.0); Hemoglobin 12.9 g/dL (11.5-16.0); IMMATURE GRAN ABSOLUTE AUTO 0.18 K/mm3 (0.00-0.10); IMMATURE GRAN PERCENT AUTO 1 % (0-1); LYMPHOCYTES ABSOLUTE AUTO 0.63 K/mm3 (0.84-5.20); LYMPHOCYTES PERCENT AUTO 4 % (21-46); MONOCYTES ABSOLUTE AUTO 0.54 K/mm3 (0.16-1.47); MONOCYTES PERCENT AUTO 3 % (4-13); Mean Corpuscular HGB 31.8 pg (26.0-34.0); Mean Corpuscular HGB Conc 33.3 g/dL (31.5-36.5); Mean Corpuscular Volume 95 fL (80-100); NEUTROPHILS ABSOLUTE AUTO 15.32 K/mm3 (1.96-9.15); NEUTROPHILS PERCENT AUTO 92 % (41-73); Platelet Count 205 K/mm3 (150-400); RDW Coefficient Variation 12.6 % (11.7-14.2); RDW Standard Deviation 43.7 fL (35.1-46.3); Red Blood Cell Count 4.06 M/mm3 (3.80-5.20); White Blood Cell Count 16.68 K/mm3 (4.00-11.30)
[2022-04-06 05:35] LABS: Bun/Creatinine Ratio 27.2 (12.0-20.0); Calcium, Blood 8.8 mg/dL (8.5-10.1); Creatinine, Blood 0.66 mg/dL (0.40-1.00)
--- NOTE | 2022-04-06 06:09 | NUR ---
HVAC FIELD SERVICE TECHNICIAN SUMMARY A/OX4. NO ACUTE EVENTS. ON TELE; NORMAL SINUS; HR IN THE 80'S. PT IS 1PA T/BSC; AMBULATED PT T/BATHROOM LAST NIGHT AND PT VERY SHORT OF BREATH; 02 SATS REMAINED >90% BUT PT BREATHING VERY LABORED; LUNG SOUNDS WHEEZY/TIGHT. CALL TO RT F/BREATHING TREATMENT. ABLE TO MAKE NEEDS KNOWN. CALL APPROPRIATELY. CALL LIGHT ACCESSIBLE. BED LOCKED/LOW. ALARM SET. VS REVIEWED/STABLE.
--- NOTE | 2022-04-06 17:12 | NUR ---
DAYSHIFT SUMMARY Patient doing well today, no acute changes to patient status. Patient ambulating to BR, took a shower today. Continues to be SOB with actvity, pursed lip breathing observed. Possible DC home tomorrow. Vitals stable, will continue plan of care.
[2022-04-07 04:38] LABS: BASOPHILS ABSOLUTE AUTO 0.01 K/mm3 (0.00-0.23); BASOPHILS PERCENT AUTO 0 % (0-2); EOSINOPHILS PERCENT AUTO 0 % (0-6); Hematocrit 37.4 % (33.0-51.0); Hemoglobin 12.6 g/dL (11.5-16.0); IMMATURE GRAN ABSOLUTE AUTO 0.17 K/mm3 (0.00-0.10); IMMATURE GRAN PERCENT AUTO 1 % (0-1); LYMPHOCYTES ABSOLUTE AUTO 0.58 K/mm3 (0.84-5.20); LYMPHOCYTES PERCENT AUTO 4 % (21-46); MONOCYTES ABSOLUTE AUTO 0.48 K/mm3 (0.16-1.47); MONOCYTES PERCENT AUTO 4 % (4-13); Mean Corpuscular HGB 31.8 pg (26.0-34.0); Mean Corpuscular HGB Conc 33.7 g/dL (31.5-36.5); Mean Corpuscular Volume 94 fL (80-100); Mean Platelet Volume 12.4 fL (9.1-12.4); NEUTROPHILS ABSOLUTE AUTO 12.04 K/mm3 (1.96-9.15); NEUTROPHILS PERCENT AUTO 91 % (41-73); Platelet Count 183 K/mm3 (150-400); RDW Coefficient Variation 12.3 % (11.7-14.2); RDW Standard Deviation 43.1 fL (35.1-46.3); Red Blood Cell Count 3.96 M/mm3 (3.80-5.20); White Blood Cell Count 13.28 K/mm3 (4.00-11.30)
[2022-04-07 04:57] LABS: Bun/Creatinine Ratio 28.7 (12.0-20.0); Calcium, Blood 8.6 mg/dL (8.5-10.1); Creatinine, Blood 0.66 mg/dL (0.40-1.00); Potassium, Blood 4.2 mmol/L (3.5-5.5)
--- NOTE | 2022-04-07 06:23 | NUR ---
INTERNAL REVIEW AND AUDIT COMPLIANCE SUMMARY PT A/OX4 WITH SOME FORGETFULNESS. NO ACUTE EVENTS. PLEASANT AND COOPERATIVE WITH CARE. PT CALLS APPROPRIATELY. SBA W/FWW TO BATHROOM. PT SOB W/ACTIVITY BUT SLIGHT IMPROVEMENT SINCE LAST NIGHT. CONT ON 3L O2 NC. PT REPORTS SHE HAS BEEN APPROVED FOR MEDICAID CAREGIVER. PT VOCALIZING DESISRE TO GO HOME. CALL LIGHT ACCESSIBLE. BED LOCKED/LOW.
[2022-04-07] MEDS ORDERED: Prednisone10 MG PO (07:57)
--- NOTE | 2022-04-07 12:45 | NUR ---
No acute changes to patient status. Patient on baseline oxygen of 3lpm, SOB w/ activity. Plan is to discharge home today, [facility] will set up oxygen at home. Patient will discharge with Prednisone, provided education on titration of Prednisone Rx. Pt verbalized understanding. Vitals stable, removed IV from right forearm. Patient left unit at 1245.
== END 2022-04-07 12:45 | disposition home or self-care (01) | DRG 189 ==
LOC: ER 13:18 → MEDS 20:29
PROVIDERS: Emergency Medicine; Family Medicine; Physician Assistant; Student in an Organized Health Care Education/Training Program; ADMIT Internal Medicine
DX: J96.21 Acute and chronic respiratory failure with hypoxia (principal); J44.1 Chronic obstructive pulmonary disease with (acute) exacerbation; J84.9 Interstitial pulmonary disease, unspecified; J44.0 Chronic obstructive pulmonary disease with (acute) lower respiratory infection; I10 Essential (primary) hypertension; M81.0 Age-related osteoporosis without current pathological fracture; J20.9 Acute bronchitis, unspecified; E78.5 Hyperlipidemia, unspecified; H40.9 Unspecified glaucoma; F41.9 Anxiety disorder, unspecified; F32.A Depression, unspecified; K21.9 Gastro-esophageal reflux disease without esophagitis; D64.9 Anemia, unspecified; M19.90 Unspecified osteoarthritis, unspecified site; Z74.09 Other reduced mobility; Z20.822 Contact with and (suspected) exposure to COVID-19; Z79.51 Long term (current) use of inhaled steroids; Z79.52 Long term (current) use of systemic steroids; Z79.82 Long term (current) use of aspirin; Z79.02 Long term (current) use of antithrombotics/antiplatelets; Z79.899 Other long term (current) drug therapy; Z99.81 Dependence on supplemental oxygen; Z87.891 Personal history of nicotine dependence; Z90.721 Acquired absence of ovaries, unilateral; Z98.890 Other specified postprocedural states; Z88.0 Allergy status to penicillin; Z91.040 Latex allergy status; Z90.710 Acquired absence of both cervix and uterus; Z85.41 Personal history of malignant neoplasm of cervix uteri
CPT/HCPCS: 0241U; 36415; 71045; 80048; 80053; 82803; 83880; 84484; 85025; 93005; 93010; 94640; 94644; 94664; 94760; 96372-59; 96374; 99285-25; A9270; J1650; J2920; J2930

== ENCOUNTER → 2022-05-03 | Outpatient (CLI) | payer MEDICARE, OTHER ==
[~2022-05-03] MED LIST changes: +LORA.5 PO; +Prednisone10 MG PO
[2022-05-03 15:33] LABS: BASOPHILS ABSOLUTE AUTO 0.04 K/mm3 (0.00-0.23); BASOPHILS PERCENT AUTO 1 % (0-2); EOSINOPHILS ABSOLUTE AUTO 0.33 K/mm3 (0.00-0.68); EOSINOPHILS PERCENT AUTO 5 % (0-6); Hematocrit 42.5 % (33.0-51.0); Hemoglobin 14.6 g/dL (11.5-16.0); IMMATURE GRAN ABSOLUTE AUTO 0.01 K/mm3 (0.00-0.10); IMMATURE GRAN PERCENT AUTO 0 % (0-1); LYMPHOCYTES ABSOLUTE AUTO 1.67 K/mm3 (0.84-5.20); LYMPHOCYTES PERCENT AUTO 28 % (21-46); MONOCYTES ABSOLUTE AUTO 0.46 K/mm3 (0.16-1.47); MONOCYTES PERCENT AUTO 8 % (4-13); Mean Corpuscular HGB 32.3 pg (26.0-34.0); Mean Corpuscular HGB Conc 34.4 g/dL (31.5-36.5); Mean Corpuscular Volume 94 fL (80-100); Mean Platelet Volume 11.2 fL (9.1-12.4); NEUTROPHILS ABSOLUTE AUTO 3.55 K/mm3 (1.96-9.15); NEUTROPHILS PERCENT AUTO 59 % (41-73); Platelet Count 204 K/mm3 (150-400); RDW Coefficient Variation 12.6 % (11.7-14.2); RDW Standard Deviation 43.3 fL (35.1-46.3); Red Blood Cell Count 4.52 M/mm3 (3.80-5.20); White Blood Cell Count 6.06 K/mm3 (4.00-11.30)
== END | disposition home or self-care (01) ==
LOC: LAB 15:28 → LAB SHORT 15:28
PROVIDERS: Physician Assistant
DX: D72.829 Elevated white blood cell count, unspecified (principal)
CPT/HCPCS: 85025

== ENCOUNTER 2023-02-16 21:32 | Inpatient (IN) | payer MEDICARE, OTHER ==
[~2023-02-16] VITALS: Ht 160 cm; Wt 78.4 kg
[~2023-02-16 21:32] MED LIST changes: +ABILIFY MYCITE5 M2; +AZELASTINE137 MCG/01; +AZIT250; +BUDE.25; +FLUT.05NI; +IPRAT-ALBUT 0.5-3 ML; +OMEP20ER; +PRED20; +SERT50; +TRELEGY ELLIPT1 EACH; -TRELEGY ELLIPT1 EACH INH
[2023-02-16 21:42] LABS: Base Excess Venous 0.6 mmol/L; Bicarbonate Venous 24.6 mmol/L (24.0-30.0); PCO2 Venous 44.5 mmHg (38-42); pH Blood Venous 7.37 (7.34-7.37)
[2023-02-16 21:51] LABS: BASOPHILS PERCENT AUTO 1 % (0-2); EOSINOPHILS PERCENT AUTO 5 % (0-6); Hematocrit 39.6 % (33.0-51.0); IMMATURE GRAN ABSOLUTE AUTO 0.03 K/mm3 (0.00-0.10); IMMATURE GRAN PERCENT AUTO 0 % (0-1); LYMPHOCYTES ABSOLUTE AUTO 3.56 K/mm3 (0.84-5.20); LYMPHOCYTES PERCENT AUTO 38 % (21-46); MONOCYTES ABSOLUTE AUTO 0.69 K/mm3 (0.16-1.47); MONOCYTES PERCENT AUTO 7 % (4-13); Mean Corpuscular HGB 31.6 pg (26.0-34.0); Mean Corpuscular HGB Conc 32.8 g/dL (31.5-36.5); Mean Corpuscular Volume 96 fL (80-100); Mean Platelet Volume 11.7 fL (9.1-12.4); NEUTROPHILS PERCENT AUTO 48 % (41-73); Platelet Count 171 K/mm3 (150-400); RDW Coefficient Variation 12.7 % (11.7-14.2); RDW Standard Deviation 45.1 fL (35.1-46.3); Red Blood Cell Count 4.11 M/mm3 (3.80-5.20); White Blood Cell Count 9.38 K/mm3 (4.00-11.30)
[2023-02-16] MEDS ORDERED: ABILIFY MYCITE10 M2 PO (21:59)
[2023-02-16] MEDS ORDERED: AUSTEDO6 MG PO (22:00)
[2023-02-16] MEDS ORDERED: MELATONIN5 M1 PO (22:02)
[2023-02-16] MEDS ORDERED: SERT100 PO (22:02)
[2023-02-16] MEDS ORDERED: TRELEGY ELLIPT1 EACH INH (22:04)
[2023-02-16 22:43] LABS: Anion Gap 4 mmol/L (6-16); Blood Urea Nitrogen 13 mg/dL (8-24); Bun/Creatinine Ratio 17.6 (12.0-20.0); CO2, Blood 30 mmol/L (21-32); Calcium, Blood 8.5 mg/dL (8.5-10.1); Chloride, Blood 109 mmol/L (98-108); Creatinine, Blood 0.74 mg/dL (0.40-1.00); Glomerular Filtration Rate 90 (60-); Glucose, Blood 119 mg/dL (70-99); Potassium, Blood 4.1 mmol/L (3.5-5.5); Sodium, Blood 143 mmol/L (136-145)
[2023-02-16 22:49] LABS: Influenza A, PCR NEGATIVE (NEGATIVE); Influenza B, PCR NEGATIVE (NEGATIVE); Resp Syncytial Virus, PCR NEGATIVE (NEGATIVE); SARS-Cov-2 (COVID-19) PCR, MMC NEGATIVE (NEGATIVE)
[2023-02-17 01:45] VITALS: BP 143/80
[2023-02-17 04:00] VITALS: BP 109/76
--- NOTE | 2023-02-17 07:08 | NUR ---
SHIFT SUMMARY PT ARRIVED TO PCU AT 0140, VIA ER DARYA. PT TRANSFERRED VIA SLIDE SHEET. REPORT FROM KADI, ED NURSE. PT LETHARGIC BUT DOES OPEN EYE TO SOUND AND ANSWERS QUESTIONS ALTHOUGH RESPONSES ARE SLOWED AND SOFT. PT ORIENTED X3, PT FALLS BACK TO SLEEP DURING CONVERSATION AT TIMES. VSS; PT TITRATED TO 3 LPM NC WHICH IS HER BASELINE, SPO2 94 - 96%. PT DOES REPORT SOB ESPECIALLY WITH "MOVEMENT". WOB AND RR WNL AT THIS TIME AND T/O REMAINDER OF THE SHIFT. LS DIMINSHED T/O WITH RHONCI IN RLL. PT DENIES CP/PRESSURE, PALPITAIONS, OR DIZZINESS, DENIES N/V. PT IS WEAK BUT WAS ABLE TO USE BSC WITH NURSE ASSIST. PT DID BECOME A LITTLE SOB, SPO2 MAINTAINED 96%. PT ABLE TO RECOVER WELL WHEN BACK TO BED. OTHERWISE PT HAD NO ACUTE CHANGES SINCE ARRIVAL TO PCU. PT ORIENTED TO ROOM AND CALL LIGHT. PT NOW BECOMING MORE ALERT AND INTERACTIVE, ASKING QUESTIONS AND ABLE TO CONVERSE MORE. WILL UPDATE ONCOMING RN
[2023-02-17 07:25] VITALS: BP 105/73
[2023-02-17 12:14] VITALS: BP 123/54
[2023-02-17 16:42] VITALS: BP 119/73
--- NOTE | 2023-02-17 17:03 | NUR ---
SHIFT SUMMARY: PT ALERT AND ORIENTED X4, ABLE TO FOLLOW COMMANDS AND MAKE NEEDS KNOWN. STRENGTH WEAK, EQUAL BILATERALLY. TREMORS NOTED, PT STATES THIS IS BASELINE. COOPERATIVE WITH CARE. BP AND HR STABLE. AFEBRILE. SPO2 >98% ON 3L NC. LUNG SOUNDS REMAIN COARSE, SOB WITH ACTIVITY. PULSES STRONG AND EQUAL THROUGHOUT. PT SBA TO AND FROM BSC, ABLE TO AMBULATE TO CHAIR FOR MEALS THIS SHIFT. PT LIVES AT [facility], UPDATE PROVIDED TO NURSE ON SHIFT. DENIES PAIN. BED IN LOW, CALL LIGHT IN REACH, WILL REPORT TO ONCOMING RN.
[2023-02-17 20:00] VITALS: BP 131/83
[2023-02-18 04:00] VITALS: BP 138/92
[2023-02-18 04:12] LABS: BASOPHILS ABSOLUTE AUTO 0.01 K/mm3 (0.00-0.23); BASOPHILS PERCENT AUTO 0 % (0-2); EOSINOPHILS PERCENT AUTO 0 % (0-6); Hematocrit 36.3 % (33.0-51.0); Hemoglobin 12.1 g/dL (11.5-16.0); IMMATURE GRAN ABSOLUTE AUTO 0.09 K/mm3 (0.00-0.10); IMMATURE GRAN PERCENT AUTO 1 % (0-1); LYMPHOCYTES ABSOLUTE AUTO 0.61 K/mm3 (0.84-5.20); LYMPHOCYTES PERCENT AUTO 6 % (21-46); MONOCYTES ABSOLUTE AUTO 0.32 K/mm3 (0.16-1.47); MONOCYTES PERCENT AUTO 3 % (4-13); Mean Corpuscular HGB 31.6 pg (26.0-34.0); Mean Corpuscular HGB Conc 33.3 g/dL (31.5-36.5); Mean Corpuscular Volume 95 fL (80-100); Mean Platelet Volume 11.9 fL (9.1-12.4); NEUTROPHILS ABSOLUTE AUTO 9.19 K/mm3 (1.96-9.15); NEUTROPHILS PERCENT AUTO 90 % (41-73); Platelet Count 142 K/mm3 (150-400); RDW Standard Deviation 44.9 fL (35.1-46.3); Red Blood Cell Count 3.83 M/mm3 (3.80-5.20); White Blood Cell Count 10.22 K/mm3 (4.00-11.30)
[2023-02-18 04:44] LABS: Anion Gap 6 mmol/L (6-16); Blood Urea Nitrogen 21 mg/dL (8-24); Bun/Creatinine Ratio 32.3 (12.0-20.0); CO2, Blood 26 mmol/L (21-32); Calcium, Blood 9.1 mg/dL (8.5-10.1); Chloride, Blood 110 mmol/L (98-108); Creatinine, Blood 0.65 mg/dL (0.40-1.00); Glomerular Filtration Rate 98 (60-); Glucose, Blood 151 mg/dL (70-99); Magnesium, Blood 2.3 mg/dL (1.6-2.4); Phosphorus, Blood 1.7 mg/dL (2.5-4.9); Potassium, Blood 4.1 mmol/L (3.5-5.5); Sodium, Blood 142 mmol/L (136-145)
--- NOTE | 2023-02-18 05:06 | NUR ---
SHIFT SUMMARY PT REMAINS A&O X4. VSS T/O SHIFT; SBP 130'S, SINUS RHYTHM W/RATE IN 80 - 90'S, AFEBRILE, AND REMAINS ON 3 LPM O2 VIA NC SPO2 >94%. PT CONTINUES TO HAVE COARSE, MOIST COUGH ALTHOUGH NO SPUTUM PRODUCTION THAT THIS RN IS AWARE OF. PT CONTINUES TO HAVE COARSE LS AND RHONCHI SCATTERED, AT TIMES LUNG SOUNDS ARE LESS COARSE, WITH ACTIVITY PT LS AND COUGH WORSEN AND PT BECOMES WHEEZY. PT DOES STATE THIS HAS BEEN HAPPENING MORE OFTEN BUT "THIS HAS BEEN THE WORST YET". DYSPNEA WITH EXERTION AND AT TIMES DURING CONVERSATION. PT DID NOT HAVE ANY EPISODE OF CP/PRESSURE. DENIES GENERAL PAIN. RESTED WELL T/O SHIFT. PT USING BSC W/1 PERSON ASSIST. NO BM THIS SHIFT. NO ACUTE CHANGES, WILL UPDATE ONCOMING RN. CALL LIGHT IN REACH
[2023-02-18 09:49] VITALS: BP 120/76
[2023-02-18 14:47] VITALS: BP 131/80
--- NOTE | 2023-02-18 17:44 | NUR ---
SHIFT SUMMARY S/P COPD EXACERBATION, A/OX4, VSS, TOLERATING PO, DENIES PAIN, ON 3L NC WHICH IS HER BASELINE, UP TO BSC AND CHAIR WITH ONE PERSON SBA FOR TRANSFERS, MILD INCREASE TO SOB WITH ACTIVITY BUT SHE DOES NOT NEED ANY ADJUSTMENTS TO HER O2 FLOW RATE FOR STAND PIVOT TRANSFERS THOUGH SHE DID NOT WALK ANY DISTANCE TODAY DUE TO SOB c ACTIVITY. NO ACUTE EVENTS THIS SHIFT, CALL LIGHT IN REACH.
[2023-02-18 20:00] VITALS: BP 119/71
--- NOTE | 2023-02-18 21:40 | NUR ---
ASSUMPTION OF CARE THIS RN ASSUMED CARE OF PT AT 1900, REPORT FROM OSVALDO OLGUIN. PT RESTING IN HER ROOM ALTHOUGH EASILY AWAKENED DURING REPORT. PT A&O X4, STATES SHE HAD A "BETTER DAY". DENIES SOB EXCEPT WITH EXERTION, PT ON BASELINE 3 LPM O2 VIA NC. LS COARSE T/O. PT CONTINUES WITH COUGH, WHITE SPUTUM PRODUCTION. VSS; SR HR IN 80, AFEBRILE, SBP 119. PT DENIES PAIN. DENIES CP/PRESSURE, DIZZINESS OR LIGHTHEADNESS. PT REPORTS "FEELING MORE STURDY" ON HER FEET TODAY. PT EXPRESSED INTEREST IN ATTEMPTING TO AMBULATE TO RESTROOM AND SEE "HOW SHE DOES". THIS RN AGREED AND WILL SEE HOW PT DOES NEXT TIME. PT REPORTS SHE IS STILL BECOMING WHEEZY AND CONGESTED/"JUNKY" WHEN UP MOVING AROUND. PT DENIES CONCERNS WITH GI/. PT USING BSC AT THIS TIME W/SBA, PT DOES APPEAR MUCH MORE STABLE - GAIT INTACT AND PT NOT TREMULOUS PREVIOUS. CALL LIGHT IN REACH AND PT DENIES OTHER NEEDS AT THIS TIME
[2023-02-19 04:00] VITALS: BP 138/90
[2023-02-19 04:14] LABS: BASOPHILS ABSOLUTE AUTO 0.01 K/mm3 (0.00-0.23); BASOPHILS PERCENT AUTO 0 % (0-2); EOSINOPHILS PERCENT AUTO 0 % (0-6); Hematocrit 36.9 % (33.0-51.0); Hemoglobin 12.1 g/dL (11.5-16.0); IMMATURE GRAN ABSOLUTE AUTO 0.14 K/mm3 (0.00-0.10); IMMATURE GRAN PERCENT AUTO 1 % (0-1); LYMPHOCYTES ABSOLUTE AUTO 0.49 K/mm3 (0.84-5.20); LYMPHOCYTES PERCENT AUTO 4 % (21-46); MONOCYTES ABSOLUTE AUTO 0.35 K/mm3 (0.16-1.47); MONOCYTES PERCENT AUTO 3 % (4-13); Mean Corpuscular HGB 31.7 pg (26.0-34.0); Mean Corpuscular HGB Conc 32.8 g/dL (31.5-36.5); Mean Corpuscular Volume 97 fL (80-100); Mean Platelet Volume 11.8 fL (9.1-12.4); NEUTROPHILS ABSOLUTE AUTO 10.06 K/mm3 (1.96-9.15); NEUTROPHILS PERCENT AUTO 91 % (41-73); Platelet Count 146 K/mm3 (150-400); RDW Coefficient Variation 13.2 % (11.7-14.2); RDW Standard Deviation 46.8 fL (35.1-46.3); Red Blood Cell Count 3.82 M/mm3 (3.80-5.20); White Blood Cell Count 11.05 K/mm3 (4.00-11.30)
[2023-02-19 04:40] LABS: Albumin, Blood 3.8 g/dL (3.4-5.0); Anion Gap 5 mmol/L (6-16); Blood Urea Nitrogen 24 mg/dL (8-24); CO2, Blood 27 mmol/L (21-32); Calcium, Blood 8.8 mg/dL (8.5-10.1); Chloride, Blood 110 mmol/L (98-108); Creatinine, Blood 0.52 mg/dL (0.40-1.00); Glomerular Filtration Rate 103 (60-); Glucose, Blood 158 mg/dL (70-99); Phosphorus, Blood 2.8 mg/dL (2.5-4.9); Potassium, Blood 4.1 mmol/L (3.5-5.5); Sodium, Blood 142 mmol/L (136-145)
--- NOTE | 2023-02-19 05:42 | NUR ---
SHIFT SUMMARY PT REMAINS A&O X4. VSS T/SHIFT. PT ON HER BASELINE 3 LPM O2 NC. NO ACUTE CHANGES FROM ASSUMPTION OF CARE NOTE. PT RESTED WELL T/O THE NIGHT. PT DID AMBULATE TO THE RESTROOM WITH FWW AND THIS RN; PT TOLERATED THIS FAIRLY WELL BUT DID BECOME MODERATELY SOB AND LS BECAME MORE COARSE AND CONGESTED, SPO2 MAINTAINED >90% WITH NO INCREASE TO 02. PT WAS ABLE TO GET BACK INTO BED AND DID TAKE ABOUT 5 - 10 MINUTES TO RECOVER. PT WAS HAPPY TO BE ABLE TO GET UP AND AMBULATE TO RESTROOM TO SEE "HOW I WAS GOING TO DO". PT ANXIOUS TO DISCHARGE BACK HOME. PT AGREEABLE THAT IT WENT WELL AND SHE FELT OKAY DURING AMBULATION. PT DENIED DIZZINESS OR LIGHTHEADNESS. PT MORE STEADY ON HER FEET THAN PREVIOUS. TOLERATING PO INTAKE. PT VOIDING, NO BM THIS SHIFT. CALL LIGHT IN REACH, PT ABLE TO MAKE NEEDS KNOWN. WILL UPDATE ONCOMING RN
[2023-02-19 07:49] VITALS: BP 126/82
[2023-02-19 15:29] VITALS: BP 133/75
--- NOTE | 2023-02-19 18:16 | NUR ---
LATE TRANSFER NOTE PT A&OX4. VSS. SP02>90% ON 2.5L NC. BREATHING TX'S W/ RT. PT NSR, HR 80'S, TELEMETRY DC'D THIS SHIFT. PT AMBULATED TO BATHROOM MULTIPLE TIMES SBA W/ FWW. MD CONTE TO ASSESS THIS AM. PLAN FOR PT TO DC BACK TO [facility] POSSIBLY 02/20. PT SAT IN CHAIR OR SAT UP IN BED MOST OF SHIFT. GAVE REPORT TO MEDICAL FLOOR RN. PT TRANSFERRED TO MEDICAL FLOOR THIS EVENING.
--- NOTE | 2023-02-19 18:30 | NUR ---
LATE NOTE/TRANSFER NOTE/SHIFT SUMMARY PT TRANSFERRED FROM PCU 15 AT 1620, REPORT RECEIVED FROM CLAU PADGETT. NO ACUTE CHANGES SINCE THE TRANSFER. PT HAS HAD NO COMPLAINTS. AOX4, SBA TO THE BR. PT ORIENTED TO THE ROOM. CALL LIGHT WITHIN REACH, BED IN THE LOWEST POSITION. WILL REPORT TO ONCOMING NURSE.
[2023-02-19 19:55] VITALS: BP 128/86
[2023-02-20 05:14] VITALS: BP 144/87
[2023-02-20 05:18] LABS: BASOPHILS ABSOLUTE AUTO 0.01 K/mm3 (0.00-0.23); BASOPHILS PERCENT AUTO 0 % (0-2); EOSINOPHILS PERCENT AUTO 0 % (0-6); Hematocrit 38.4 % (33.0-51.0); Hemoglobin 12.4 g/dL (11.5-16.0); IMMATURE GRAN ABSOLUTE AUTO 0.11 K/mm3 (0.00-0.10); IMMATURE GRAN PERCENT AUTO 1 % (0-1); LYMPHOCYTES ABSOLUTE AUTO 0.51 K/mm3 (0.84-5.20); LYMPHOCYTES PERCENT AUTO 5 % (21-46); MONOCYTES ABSOLUTE AUTO 0.54 K/mm3 (0.16-1.47); MONOCYTES PERCENT AUTO 6 % (4-13); Mean Corpuscular HGB 31.1 pg (26.0-34.0); Mean Corpuscular HGB Conc 32.3 g/dL (31.5-36.5); Mean Corpuscular Volume 96 fL (80-100); NEUTROPHILS ABSOLUTE AUTO 8.69 K/mm3 (1.96-9.15); NEUTROPHILS PERCENT AUTO 88 % (41-73); Platelet Count 141 K/mm3 (150-400); RDW Coefficient Variation 12.7 % (11.7-14.2); RDW Standard Deviation 45.2 fL (35.1-46.3); Red Blood Cell Count 3.99 M/mm3 (3.80-5.20); White Blood Cell Count 9.86 K/mm3 (4.00-11.30)
--- NOTE | 2023-02-20 05:24 | NUR ---
SHIFT SUMMARY: PT IS ADMITTED FOR ACUTE HYPOXEMIC RESPIRATORY FAILURE AND IS A DNR. SHE IS ALERT AND ABLE TO MAKE NEEDS KNOWN. IS A 1P STBY-MIN FOR MOST ADLs. DENIES PAIN OR DISCOMFORT WHEN ASKED. IV TO RIGHT FOREARM IS PATENT WITH A DRESSING THAT IS CDI.
[2023-02-20 05:53] LABS: Bun/Creatinine Ratio 35.8 (12.0-20.0); Calcium, Blood 8.8 mg/dL (8.5-10.1); Creatinine, Blood 0.61 mg/dL (0.40-1.00); Potassium, Blood 3.9 mmol/L (3.5-5.5)
[2023-02-20 07:49] VITALS: BP 145/89
[2023-02-20] MEDS ORDERED: Prednisone10 MG PO (11:14)
[2023-02-20] MEDS ORDERED: CEFP200 PO (11:15)
--- NOTE | 2023-02-20 12:20 | NUR ---
DISCHARGE PT DISCHARGED AFTER O2 TANK WAS DELIVERED AND NEW MEDS WERE GONE OVER. PT STATES SHE HAS NO FURTHER QUESTIONS AT THIS TIME. BELONGINGS SENT WITH THE PT. IV REMOVED & INTACT. PT WHEELED OUT BY THIS RN AND DRIVEN HOME BY FRIEND.
== END 2023-02-20 12:13 | disposition home or self-care (01) | DRG 189 ==
LOC: ER 21:32 → PCU 21:33 → MEDS 02-17 14:42 → PCU 02-17 14:42 → MEDS 02-19 16:29
PROVIDERS: Family Medicine; Internal Medicine; Student in an Organized Health Care Education/Training Program; ADMIT Internal Medicine
DX: J96.21 Acute and chronic respiratory failure with hypoxia (principal); J44.1 Chronic obstructive pulmonary disease with (acute) exacerbation; J84.9 Interstitial pulmonary disease, unspecified; I50.810 Right heart failure, unspecified; E78.5 Hyperlipidemia, unspecified; I11.0 Hypertensive heart disease with heart failure; F41.8 Other specified anxiety disorders; K21.9 Gastro-esophageal reflux disease without esophagitis; M81.0 Age-related osteoporosis without current pathological fracture; Z74.09 Other reduced mobility; Z87.891 Personal history of nicotine dependence; Z79.51 Long term (current) use of inhaled steroids
CPT/HCPCS: 0241U; 36415; 71045; 80048; 80069; 82803; 83735; 84145; 85025; 93005; 93010; 94640; 94644; 94664; 94760; 94762; 96365; 96367; 96372; 96375; 96376; 99285-25; A9270; G0378; J0456; J0696; J1650; J2930; J3475; J7030; J7050; J7512

== ENCOUNTER → 2023-04-09 | Outpatient (CLI) | payer MEDICARE, OTHER ==
[~2023-04-09] MED LIST changes: +ABILIFY MYCITE10 M2 PO; +AUSTEDO6 MG PO; +CEFP200 PO; +MELATONIN5 M1 PO; +SERT100 PO; +TRELEGY ELLIPT1 EACH INH
[2023-04-09 17:42] LABS: Appearance, Urine Clear (Clear); Bilirubin, Urine Neg (Neg); Blood, Urine 1+ (Neg); Color, Urine Yellow (P-Yellow); Glucose Qualitative, Urine Neg (Neg); Ketones, Urine Neg (Neg); Leukocyte Esterase, Urine 2+ (Neg); Nitrite, Urine Neg (Neg); Protein, Urine Neg (Neg); Specific Gravity, Urine 1.005 (1.003-1.022); Urobilinogen, Urine NORM (Normal)
[2023-04-09 18:02] LABS: Bacteria Few /hpf; Red Blood Cells, Urine 0-2 /hpf (0-2); Squamous Epithelial Cells Few /hpf (Few); White Blood Cells, Urine 0-2 /hpf (0-5)
== END ==
LOC: LAB SHORT 13:30 → LAB 13:30
PROVIDERS: Physician Assistant
DX: R30.0 Dysuria (principal)
CPT/HCPCS: 81001; 87086

== ENCOUNTER → 2023-04-11 | Outpatient (CLI) | payer MEDICARE, OTHER | LOC: LAB SHORT 17:32 → LAB 17:32 | DX: N39.0 Urinary tract infection, site not specified (principal) | CPT/HCPCS: 87086 ==

== ENCOUNTER 2023-09-15 05:51 | Inpatient (IN) | payer MEDICARE, OTHER ==
[~2023-09-15] VITALS: Ht 160 cm; Wt 79.0 kg
[~2023-09-15 05:51] MED LIST changes: -OMEP20ER; +OMEP20ER PO
[2023-09-15 06:52] LABS: BASOPHILS ABSOLUTE AUTO 0.06 K/mm3 (0.00-0.23); BASOPHILS PERCENT AUTO 1 % (0-2); EOSINOPHILS ABSOLUTE AUTO 0.16 K/mm3 (0.00-0.68); EOSINOPHILS PERCENT AUTO 2 % (0-6); Hemoglobin 12.4 g/dL (11.5-16.0); IMMATURE GRAN ABSOLUTE AUTO 0.06 K/mm3 (0.00-0.10); IMMATURE GRAN PERCENT AUTO 1 % (0-1); LYMPHOCYTES ABSOLUTE AUTO 1.23 K/mm3 (0.84-5.20); LYMPHOCYTES PERCENT AUTO 11 % (21-46); MONOCYTES ABSOLUTE AUTO 0.79 K/mm3 (0.16-1.47); MONOCYTES PERCENT AUTO 7 % (4-13); Mean Corpuscular HGB 31.3 pg (26.0-34.0); Mean Corpuscular HGB Conc 33.5 g/dL (31.5-36.5); Mean Corpuscular Volume 93 fL (80-100); Mean Platelet Volume 10.9 fL (9.1-12.4); NEUTROPHILS ABSOLUTE AUTO 8.53 K/mm3 (1.96-9.15); NEUTROPHILS PERCENT AUTO 79 % (41-73); Platelet Count 143 K/mm3 (150-400); RDW Coefficient Variation 13.2 % (11.7-14.2); RDW Standard Deviation 45.1 fL (35.1-46.3); Red Blood Cell Count 3.96 M/mm3 (3.80-5.20); White Blood Cell Count 10.83 K/mm3 (4.00-11.30)
[2023-09-15 07:02] LABS: Albumin, Blood 3.9 g/dL (3.4-5.0); Albumin/Globulin Ratio 1.3 (0.8-1.8); Bilirubin, Total 0.5 mg/dL (0.1-1.0); Bun/Creatinine Ratio 19.8 (12.0-20.0); Calcium, Blood 8.5 mg/dL (8.5-10.1); Creatinine, Blood 0.61 mg/dL (0.40-1.00); Globulin, Blood 2.9 g/dL (2.2-4.0); Total Protein, Blood 6.8 g/dL (6.4-8.2)
[2023-09-15] MEDS ORDERED: Dexamethasone Sod Phos 10 MG/ML 1ML VIAL IV ONE (07:05)
[2023-09-15] MEDS ORDERED: Ipratropium/Albuterol SulF 2.5-0.5MG/3 ML Amp INH ONE (07:05)
[2023-09-15 07:58] LABS: Influenza A, PCR NEGATIVE (NEGATIVE); Influenza B, PCR NEGATIVE (NEGATIVE); Resp Syncytial Virus, PCR NEGATIVE (NEGATIVE)
[2023-09-15 08:16] LABS: SARS-Cov-2 (COVID-19) PCR, MMC POSITIVE (NEGATIVE)
[2023-09-15] MEDS ORDERED: Albuterol 2.5 MG/3 ML VIAL INH SCH (08:55)
[2023-09-15] MEDS ORDERED: Ipratropium/Albuterol SulF 2.5-0.5MG/3 ML Amp INH SCH (09:10)
[2023-09-15] MEDS ORDERED: Albuterol 2.5 MG/3 ML VIAL INH PRN (09:10)
[2023-09-15 12:30] VITALS: BP 112/80
[2023-09-15] MEDS ORDERED: PRED5 PO (13:33)
--- NOTE | 2023-09-15 15:27 | NUR ---
PT ARRIVED TO ROOM PCU 07 FROM THE ER VIA [facility] AT APROX 1235. PT ABLE TO STAND AND TRANSFER FROM [place] TO BED, PT NOTED TO BE WEAK AND A LITTLE OFF BALANCE AT THIS TIME. PT IS A&OX4, ROMANO, FOLLOWS COMMANDS. SEE DOCUMENTED VS AND ASSESSMENT. PT IS NOTED TO HAVE SOME UVULA AND TOUNGE EDEMA, PT STATES THIS HAS IMPROVED FROM THIS AM. BEDSIDE SWALLOW EVAL COMPLETED AND PT DOES NOT APPEAR TO HAVE DIFFICULTY AT THIS TIME. AIRWAY IS PATENT AND PT DENIES SOB AT REST. PT ORIENTED TO ROOM, CALL LIGHT AND UNIT ROUTINES. PT IS ABLE TO USE CALL LIGHT FOR NEEDS AND MAKE NEEDS KNOWN. PT VERBALIZES UNDERSTANDING TO CALL STAFF FOR ASSISTANCE BEFORE GETTING OOB. CALL LIGHT IS IN REACH AT THIS TIME AND PT APPEARS TO BE SLEEPING, RESPIRATIONS EVEN AND UNLABORED, CONTINUOUS PULSE OX IN PLACE. CALL LIGHT IN REACH. WILL CONTINUE TO MONITOR.
[2023-09-15 16:13] VITALS: BP 133/78
[2023-09-15] MEDS ORDERED: Mometasone/Formoterol MDI 100/5 mcg 13 GM INH SCH ×2 (17:00→17:30)
--- NOTE | 2023-09-15 18:17 | NUR ---
NO ACUTE CHANGES SINCE LAST NOTE. FACIAL/ORAL EDEMA APPEARS UNCHANGED FROM PRIOR ASSESSMENT. PT REQUESTING BREATHING TX AND RT NOTIFIED. PT IS ABLE TO USE CALL LIGHT AND MAKE NEEDS KNOWN, CALL LIGHT IN REACH, WILL CONTINUE TO MONITOR AND GIVE REPORT TO NOC SHIFT RN.
[2023-09-15 20:40] VITALS: BP 119/78
[2023-09-15] MEDS ORDERED: Melatonin 5 MG Tablet PO SCH (21:00)
[2023-09-15] MEDS ORDERED: ARIPiprazole 10 MG Tab PO SCH (21:00)
[2023-09-15] MEDS ORDERED: Atorvastatin 10 MG Tab PO SCH (21:00)
[2023-09-15] MEDS ORDERED: DiphenhydrAMINE HCL 25 MG Cap PO SCH (21:00)
[2023-09-15 23:44] VITALS: BP 113/76
[2023-09-16 04:09] VITALS: BP 113/75
[2023-09-16 04:09] LABS: BASOPHILS ABSOLUTE AUTO 0.01 K/mm3 (0.00-0.23); BASOPHILS PERCENT AUTO 0 % (0-2); EOSINOPHILS PERCENT AUTO 0 % (0-6); Hematocrit 35.8 % (33.0-51.0); Hemoglobin 12.1 g/dL (11.5-16.0); IMMATURE GRAN ABSOLUTE AUTO 0.04 K/mm3 (0.00-0.10); IMMATURE GRAN PERCENT AUTO 0 % (0-1); LYMPHOCYTES ABSOLUTE AUTO 0.62 K/mm3 (0.84-5.20); LYMPHOCYTES PERCENT AUTO 7 % (21-46); MONOCYTES ABSOLUTE AUTO 0.56 K/mm3 (0.16-1.47); MONOCYTES PERCENT AUTO 6 % (4-13); Mean Corpuscular HGB 31.2 pg (26.0-34.0); Mean Corpuscular HGB Conc 33.8 g/dL (31.5-36.5); Mean Corpuscular Volume 92 fL (80-100); Mean Platelet Volume 10.4 fL (9.1-12.4); NEUTROPHILS PERCENT AUTO 87 % (41-73); Platelet Count 147 K/mm3 (150-400); RDW Standard Deviation 43.5 fL (35.1-46.3); Red Blood Cell Count 3.88 M/mm3 (3.80-5.20); White Blood Cell Count 9.13 K/mm3 (4.00-11.30)
[2023-09-16 04:27] LABS: Albumin, Blood 3.7 g/dL (3.4-5.0); Albumin/Globulin Ratio 1.2 (0.8-1.8); Bilirubin, Total 0.4 mg/dL (0.1-1.0); Creatinine, Blood 0.5 mg/dL (0.40-1.00); Globulin, Blood 3.2 g/dL (2.2-4.0); Total Protein, Blood 6.9 g/dL (6.4-8.2)
--- NOTE | 2023-09-16 05:50 | NUR ---
SHIFT SUMMARY. SHIFT HAS BEEN UNREMARKABLE. PT AOX4, PLEASANT, COOPERATIVE WITH CARE, CALLS APPROPRIATELY, ABLE TO MAKE NEEDS KNOWN. HAS SLEPT THROUGHOUT MOST OF SHIFT. ADMITTED WITH ANGIOEDEMA, APPEARS TO HAVE CONTINUED TO IMPROVE OVER COURSE OF SHIFT AND PT REPORTS THAT SHE IS FEELING THAT IT HAS GOTTEN MUCH BETTER. NO CHANGE IN O2 DEMANDS OVERNIGHT. VITALS OTHERWISE STABLE. TELE ON THROUGHOUT SHIFT WITH NO ACUTE CHANGES OR EVENTS. NO PAIN REPORTED THROUGHOUT SHIFT. BED LOCKED IN LOWEST POSITION. CALL LIGHT LEFT WITHIN REACH. CONTINUING TO MONITOR.
[2023-09-16] MEDS ORDERED: Famotidine 20 MG Tab PO SCH (07:30)
[2023-09-16 08:13] VITALS: BP 111/65
[2023-09-16] MEDS ORDERED: Aspirin 81 MG TabEC PO SCH (09:00)
[2023-09-16] MEDS ORDERED: Cholecalciferol 1000 Unit Tablet (=25MCG) PO SCH (09:00)
[2023-09-16] MEDS ORDERED: Sertraline HCl 100 MG Tab PO SCH (09:00)
[2023-09-16] MEDS ORDERED: Enoxaparin 40 MG/0.4 ML SYR SC SCH (09:00)
[2023-09-16] MEDS ORDERED: Omeprazole 20 MG CapCR PO SCH (09:00)
[2023-09-16] MEDS ORDERED: Dexamethasone Sodium Phosphate 4 MG/ML 1ML Vial IV SCH (15:00)
[2023-09-16 16:33] VITALS: BP 120/78
[2023-09-16] MEDS ORDERED: Cefepime HCl 2,000 MG in NS 100 ML IV SCH (16:45)
--- NOTE | 2023-09-16 18:18 | NUR ---
ASSUMED CARE OF PT AT 0700 THIS AM. SEE DOCUMENTED VS AND ASSESSMENT. DR CONTE ROUNDED ON PT, PLAN IS TO DISCHARGE TOMORROW IF ANGIO EDEMA CONTINUES TO IMPROVE. NO ACUTE CHANGES T/O THE DAY. PT IS PLEASANT, CALM AND COOPERATIVE WITH CARE. PT IS ABLE TO USE CALL LIGHT FOR NEEDS, CALL LIGHT IN REACH, WILL CONTINUE TO MONITOR AND GIVE REPORT TO NOC SHIFT RN.
[2023-09-16 20:00] VITALS: BP 120/71
[2023-09-17 03:30] VITALS: BP 119/77
[2023-09-17 04:03] LABS: BASOPHILS ABSOLUTE AUTO 0.01 K/mm3 (0.00-0.23); BASOPHILS PERCENT AUTO 0 % (0-2); EOSINOPHILS PERCENT AUTO 0 % (0-6); Hemoglobin 11.9 g/dL (11.5-16.0); IMMATURE GRAN PERCENT AUTO 1 % (0-1); LYMPHOCYTES ABSOLUTE AUTO 0.52 K/mm3 (0.84-5.20); LYMPHOCYTES PERCENT AUTO 5 % (21-46); MONOCYTES ABSOLUTE AUTO 0.41 K/mm3 (0.16-1.47); MONOCYTES PERCENT AUTO 4 % (4-13); Mean Corpuscular HGB 31.1 pg (26.0-34.0); Mean Corpuscular HGB Conc 33.1 g/dL (31.5-36.5); Mean Corpuscular Volume 94 fL (80-100); Mean Platelet Volume 11.3 fL (9.1-12.4); NEUTROPHILS ABSOLUTE AUTO 9.78 K/mm3 (1.96-9.15); NEUTROPHILS PERCENT AUTO 90 % (41-73); Platelet Count 156 K/mm3 (150-400); RDW Coefficient Variation 13.3 % (11.7-14.2); RDW Standard Deviation 46.1 fL (35.1-46.3); Red Blood Cell Count 3.83 M/mm3 (3.80-5.20); White Blood Cell Count 10.82 K/mm3 (4.00-11.30)
[2023-09-17 04:30] LABS: Bun/Creatinine Ratio 29.9 (12.0-20.0); Calcium, Blood 8.7 mg/dL (8.5-10.1); Creatinine, Blood 0.57 mg/dL (0.40-1.00); Potassium, Blood 4.2 mmol/L (3.5-5.5)
--- NOTE | 2023-09-17 06:15 | NUR ---
SHIFT SUMMARY PT A&O X4. VSS; SBP 120'S, HRR SINUS IN 70'S, AFEBRILE, SPO2 97-100% ON 3 LPM NC WHICH IS PT'S BASELINE. PT CONTINUES WITH PRODUCTIVE COUGH AND COARSE, WHEEZES T/O LUNGS. PT DYSPNEIC WITH EXERTION, PT WHEEZE BECOMES WORSE WHEN UP AND MOVING BUT PT RECOVERS WELL AND SPO2 IN HIGH 80'S. PT DENIES CP/PRESSURE, N/V, DIZZINESS, PALPITATIONS. NO ACUTE EVENTS OVERNIGHT. PT REPORTS BEING "TIRED AND NOT FEELING WELL". PT'S ANGIOEDEMA CONTINUES TO IMPROVE, NO ISSUES NOTED. TRACE EDEMA STILL PRESENT. PT USING RESTROOM WITH 1 PER/SBA. PT INITIALLY UNSTEADY ON HER FEET, BUT THEN DOES WELL. ABX PER MAY. CALL LIGHT IN REACH, WILL UPDATE ONCOMING RN
[2023-09-17 07:50] VITALS: BP 128/83
[2023-09-17] MEDS ORDERED: PRED20 PO (09:21)
[2023-09-17] MEDS ORDERED: ZYRTEC10 M2 PO (09:21)
[2023-09-17 18:30] LABS: COMPLEMENT COMPONENT 4 33 mg/dL (10-40)
== END 2023-09-17 09:34 | disposition home or self-care (01) | DRG 915 ==
LOC: ER 05:51 → PCU 05:52 → ERHOLD 05:52 → PCU 12:44
PROVIDERS: Student in an Organized Health Care Education/Training Program; ADMIT Internal Medicine
PROC: 3E0333Z Introduction of Anti-inflammatory into Peripheral Vein, Percutaneous Approach (ICD-10-PCS; principal; 2023-09-15)
DX: T78.3XXA Angioneurotic edema, initial encounter (principal); U07.1 COVID-19; J84.9 Interstitial pulmonary disease, unspecified; J44.1 Chronic obstructive pulmonary disease with (acute) exacerbation; J96.11 Chronic respiratory failure with hypoxia; Z66 Do not resuscitate; E78.5 Hyperlipidemia, unspecified; K21.9 Gastro-esophageal reflux disease without esophagitis; F41.8 Other specified anxiety disorders; I11.0 Hypertensive heart disease with heart failure; I50.810 Right heart failure, unspecified; Z87.891 Personal history of nicotine dependence; E66.3 Overweight; Z88.0 Allergy status to penicillin; Z91.040 Latex allergy status; Z90.89 Acquired absence of other organs; Z90.721 Acquired absence of ovaries, unilateral; Z90.710 Acquired absence of both cervix and uterus; Z98.890 Other specified postprocedural states; Z68.30 Body mass index [BMI] 30.0-30.9, adult
CPT/HCPCS: 0241U; 36415; 71046; 80048; 80053; 84484; 85025; 86140; 86160; 93005; 93010; 94640; 94664; 94761; 94762; 96372; 96374; 99285-25; A9270; G0378; J0692; J1100; J1650

== ENCOUNTER 2023-11-21 13:58 | Inpatient (IN) | payer MEDICARE, OTHER ==
[~2023-11-21] VITALS: Ht 160 cm; Wt 79.4 kg
[~2023-11-21 13:58] MED LIST changes: +PRED5 PO; -SERT100 PO; +ZYRTEC10 M2 PO
[2023-11-21] MEDS ORDERED: Ipratropium/Albuterol SulF 2.5-0.5MG/3 ML Amp INH PRN ×2 (14:15→17:20)
[2023-11-21] MEDS ORDERED: Acetaminophen325 M1 PO (14:21)
[2023-11-21] MEDS ORDERED: MYLANTA MAXIMUM10 ML PO (14:23)
[2023-11-21 14:24] LABS: BASOPHILS ABSOLUTE AUTO 0.07 K/mm3 (0.00-0.23); BASOPHILS PERCENT AUTO 1 % (0-2); EOSINOPHILS ABSOLUTE AUTO 0.22 K/mm3 (0.00-0.68); EOSINOPHILS PERCENT AUTO 2 % (0-6); Hematocrit 40.6 % (33.0-51.0); Hemoglobin 13.5 g/dL (11.5-16.0); IMMATURE GRAN ABSOLUTE AUTO 0.04 K/mm3 (0.00-0.10); IMMATURE GRAN PERCENT AUTO 0 % (0-1); LYMPHOCYTES ABSOLUTE AUTO 2.07 K/mm3 (0.84-5.20); LYMPHOCYTES PERCENT AUTO 17 % (21-46); MONOCYTES ABSOLUTE AUTO 0.47 K/mm3 (0.16-1.47); MONOCYTES PERCENT AUTO 4 % (4-13); Mean Corpuscular HGB 31.6 pg (26.0-34.0); Mean Corpuscular HGB Conc 33.3 g/dL (31.5-36.5); Mean Corpuscular Volume 95 fL (80-100); Mean Platelet Volume 10.7 fL (9.1-12.4); NEUTROPHILS ABSOLUTE AUTO 9.12 K/mm3 (1.96-9.15); NEUTROPHILS PERCENT AUTO 76 % (41-73); Platelet Count 171 K/mm3 (150-400); RDW Coefficient Variation 13.2 % (11.7-14.2); RDW Standard Deviation 46.5 fL (35.1-46.3); Red Blood Cell Count 4.27 M/mm3 (3.80-5.20); White Blood Cell Count 11.99 K/mm3 (4.00-11.30)
[2023-11-21] MEDS ORDERED: AUSTEDO XR24 MG PO (14:24)
[2023-11-21 14:25] LABS: Base Excess Venous 2.9 mmol/L; Bicarbonate Venous 25.8 mmol/L (24.0-30.0); PCO2 Venous 53.1 mmHg (38-42); pH Blood Venous 7.34 (7.34-7.37)
[2023-11-21] MEDS ORDERED: FAMO20 PO (14:25)
[2023-11-21] MEDS ORDERED: AZIT250 PO (14:25)
[2023-11-21 14:37] LABS: Albumin, Blood 4.2 g/dL (3.4-5.0); Albumin/Globulin Ratio 1.5 (0.8-1.8); Bilirubin, Total 0.6 mg/dL (0.1-1.0); Bun/Creatinine Ratio 21.5 (12.0-20.0); Calcium, Blood 8.9 mg/dL (8.5-10.1); Creatinine, Blood 0.61 mg/dL (0.40-1.00); Globulin, Blood 2.8 g/dL (2.2-4.0); Potassium, Blood 4.2 mmol/L (3.5-5.5)
[2023-11-21] MEDS ORDERED: LORazepam 2 MG/ML 1ML Injection IV ONE (14:40)
[2023-11-21] MEDS ORDERED: Albuterol 2.5 MG/3 ML VIAL INH SCH ×2 (14:50→16:15)
[2023-11-21] MEDS ORDERED: Ipratropium/Albuterol SulF 2.5-0.5MG/3 ML Amp INH ONE (16:15)
[2023-11-21] MEDS ORDERED: Azithromycin 500 MG in NS 250 ML IV ONE (16:15)
[2023-11-21] MEDS ORDERED: FLU VACC TS2024-25(6MOS UP)/PF 45 MCG/0.5 ML SYRINGE IM SCH (17:20)
[2023-11-21] MEDS ORDERED: Acetaminophen 325 MG TABLET PO PRN (17:25)
[2023-11-21] MEDS ORDERED: TRELEGY ELLIPT1 EACH INH (17:27)
[2023-11-21] MEDS ORDERED: Mometasone/Formoterol MDI 200/5 mcg 13 GM INH SCH (17:40)
[2023-11-21] MEDS ORDERED: CefTRIAXone Sodium 1,000 MG in NS 100 ML IV SCH (18:00)
[2023-11-21 19:31] VITALS: BP 157/103
[2023-11-21] MEDS ORDERED: MethylPREDNISolone Sod Succ 125 MG Vial IV SCH (20:12)
[2023-11-21] MEDS ORDERED: Albuterol 2.5 MG/3 ML VIAL INH PRN (20:40)
[2023-11-21] MEDS ORDERED: ARIPiprazole 10 MG Tab PO SCH (21:00)
[2023-11-21] MEDS ORDERED: Atorvastatin 10 MG Tab PO SCH (21:00)
[2023-11-22 03:20] VITALS: BP 165/75
[2023-11-22 05:26] LABS: BASOPHILS ABSOLUTE AUTO 0.01 K/mm3 (0.00-0.23); BASOPHILS PERCENT AUTO 0 % (0-2); EOSINOPHILS PERCENT AUTO 0 % (0-6); Hemoglobin 12.5 g/dL (11.5-16.0); IMMATURE GRAN ABSOLUTE AUTO 0.05 K/mm3 (0.00-0.10); IMMATURE GRAN PERCENT AUTO 1 % (0-1); LYMPHOCYTES ABSOLUTE AUTO 0.69 K/mm3 (0.84-5.20); LYMPHOCYTES PERCENT AUTO 8 % (21-46); MONOCYTES ABSOLUTE AUTO 0.11 K/mm3 (0.16-1.47); MONOCYTES PERCENT AUTO 1 % (4-13); Mean Corpuscular HGB 30.9 pg (26.0-34.0); Mean Corpuscular HGB Conc 32.9 g/dL (31.5-36.5); Mean Corpuscular Volume 94 fL (80-100); Mean Platelet Volume 11.2 fL (9.1-12.4); NEUTROPHILS ABSOLUTE AUTO 7.79 K/mm3 (1.96-9.15); NEUTROPHILS PERCENT AUTO 90 % (41-73); Platelet Count 145 K/mm3 (150-400); RDW Standard Deviation 44.9 fL (35.1-46.3); Red Blood Cell Count 4.05 M/mm3 (3.80-5.20); White Blood Cell Count 8.65 K/mm3 (4.00-11.30)
--- NOTE | 2023-11-22 05:33 | NUR ---
NOC SUMMARY- PT ARRIVED TO ROOM ON BIPAP AND IN NO DISTRESS. SHIFT PROGRESSED PT WAS TRANSITIONED TO NASAL CANNULA. PT CURRENTLY ON O2 @ 3 LPM VIA NC. PT REPORTS FEELING MUCH BETTER AND BREATHING EASIER. PT HAS BEEN ABLE TO REST COMFORTABLY. PT HAS BEEN UP TO BSC AND TOLERATED EXERTION WELL. PT SPO2 HAS REMAINED >90%. CALL LIGHT IN REACH AND BED ALARM ON.
[2023-11-22 06:01] LABS: Albumin, Blood 3.8 g/dL (3.4-5.0); Albumin/Globulin Ratio 1.3 (0.8-1.8); Bilirubin, Total 0.5 mg/dL (0.1-1.0); Bun/Creatinine Ratio 28.4 (12.0-20.0); Calcium, Blood 8.6 mg/dL (8.5-10.1); Creatinine, Blood 0.56 mg/dL (0.40-1.00); Potassium, Blood 3.8 mmol/L (3.5-5.5); Total Protein, Blood 6.8 g/dL (6.4-8.2)
[2023-11-22 07:39] VITALS: BP 127/85
[2023-11-22] MEDS ORDERED: Famotidine 20 MG Tab PO SCH (09:00)
[2023-11-22] MEDS ORDERED: Enoxaparin 40 MG/0.4 ML SYR SC SCH (09:00)
[2023-11-22] MEDS ORDERED: Aspirin 81 MG TabEC PO SCH (09:00)
[2023-11-22] MEDS ORDERED: DEUTETRABENAZINE 24 MG PO SCH (09:00)
[2023-11-22] MEDS ORDERED: Loratadine 10 MG Tab PO SCH (09:00)
[2023-11-22] MEDS ORDERED: Lactobacil 2-S.Thermo-Bifido 1 1 Cap PO SCH (09:00)
[2023-11-22] MEDS ORDERED: Azithromycin 500 MG in NS 250 ML IV SCH (09:00)
--- NOTE | 2023-11-22 09:50 | NUR ---
PATIENT'S HOME MED DEUTETRABENAZINE FOR TARDIVE DYSKINESIA ISN'T AVAILABLE. PATIENT STATES THAT "THEY" GIVE IT TO HER AT [facility]. CALLED DR. BRYANT TO INQUIRE MISSING DOSES OF MED AND IF I NEED TO CALL [facility] TO HAVE THEM BRING THE MEDICATION IN. DR. BRYANT WILL LOOK INTO IT AND CALL ME BACK.
[2023-11-22] MEDS ORDERED: ISOSORBIDE MONO60 MG PO (11:56)
[2023-11-22] MEDS ORDERED: PRED5 PO (11:57)
[2023-11-22] MEDS ORDERED: SERT100 PO (11:59)
--- NOTE | 2023-11-22 12:25 | NUR ---
DR. BRYANT GOT BACK TO ME AND STATED THAT THE PATIENT DOES NEED THE DEUTETRABENAZINE. CALLED [facility] AND SPOKE WITH HUMBERTO. SHE WILL BRING THE MEDICATION.
[2023-11-22 15:18] VITALS: BP 129/90
[2023-11-22] MEDS ORDERED: Ipratropium/Albuterol SulF 2.5-0.5MG/3 ML Amp INH SCH (17:20)
--- NOTE | 2023-11-22 17:35 | NUR ---
SHIFT SUMMARY: PT [id number]&[id number] PERSON ASSIST, MAKES NEEDS KNOWN. SHE EXPRESSES THAT HER BREATHING IS BETTER THIS AFTERNOON. STILL GETS EXERTED/SOB WITH ACTIVITY. SHE REMAINS OF 3 L N/C, HASN'T NEEDED BIPAP. SHE IS IN BED, CALL LIGHT WITHIN REACH, NO SIGNS OR SYMPTOMS OF DISTRESS, PLAN OF CARE ONGOING. POSSIBLE D/C 11/22.
[2023-11-22 19:36] VITALS: BP 146/97
[2023-11-23 04:06] VITALS: BP 135/82
--- NOTE | 2023-11-23 04:06 | NUR ---
SHIFT SUMMARY: PT ALERT ORIENTED X 4. GETS UP TO BEDSIDE COMMODE WITH SBA. REMAINS ON 3L VIA NC.SATTING WELL. SHE C/O SOB ON EXERTION WHEN GETTING OUT OF BED. SHE IS DUE TO BE DISCHARGED TODAY. NO C/O PAIN THIS SHIFT. RESTING IN BED AT THIS TIME WITH CALL LIGHT IN REACH AND BED ALARM ON SIDE RAILS UP. VSS.
[2023-11-23 05:38] LABS: BASOPHILS ABSOLUTE AUTO 0.01 K/mm3 (0.00-0.23); BASOPHILS PERCENT AUTO 0 % (0-2); EOSINOPHILS PERCENT AUTO 0 % (0-6); Hematocrit 38.2 % (33.0-51.0); Hemoglobin 12.5 g/dL (11.5-16.0); IMMATURE GRAN ABSOLUTE AUTO 0.12 K/mm3 (0.00-0.10); IMMATURE GRAN PERCENT AUTO 1 % (0-1); LYMPHOCYTES ABSOLUTE AUTO 0.54 K/mm3 (0.84-5.20); LYMPHOCYTES PERCENT AUTO 4 % (21-46); MONOCYTES ABSOLUTE AUTO 0.36 K/mm3 (0.16-1.47); MONOCYTES PERCENT AUTO 3 % (4-13); Mean Corpuscular HGB 31.2 pg (26.0-34.0); Mean Corpuscular HGB Conc 32.7 g/dL (31.5-36.5); Mean Corpuscular Volume 95 fL (80-100); Mean Platelet Volume 11.2 fL (9.1-12.4); NEUTROPHILS ABSOLUTE AUTO 12.19 K/mm3 (1.96-9.15); NEUTROPHILS PERCENT AUTO 92 % (41-73); Platelet Count 159 K/mm3 (150-400); RDW Coefficient Variation 13.2 % (11.7-14.2); RDW Standard Deviation 46.5 fL (35.1-46.3); Red Blood Cell Count 4.01 M/mm3 (3.80-5.20); White Blood Cell Count 13.22 K/mm3 (4.00-11.30)
[2023-11-23 06:22] LABS: Albumin, Blood 3.7 g/dL (3.4-5.0); Albumin/Globulin Ratio 1.3 (0.8-1.8); Bilirubin, Total 0.3 mg/dL (0.1-1.0); Bun/Creatinine Ratio 29.7 (12.0-20.0); Calcium, Blood 8.8 mg/dL (8.5-10.1); Creatinine, Blood 0.54 mg/dL (0.40-1.00); Globulin, Blood 2.9 g/dL (2.2-4.0); Potassium, Blood 3.9 mmol/L (3.5-5.5); Total Protein, Blood 6.6 g/dL (6.4-8.2)
[2023-11-23 07:05] VITALS: BP 129/83
[2023-11-23] MEDS ORDERED: Sertraline HCl 100 MG Tab PO SCH (09:00)
[2023-11-23] MEDS ORDERED: Isosorbide Mononitrate 60 MG TABCR PO SCH (09:00)
--- NOTE | 2023-11-23 14:09 | NUR ---
DISCHARGE NOTE: PATIENT GOT HERSELF DRESSING AND GATHERED BELONGINGS. MEDICAL TRANSPORT ARRIVED VIA WHEELCHAIR. PATIENT SENT HOME WITH HOME MEDICATION. PATIENT TRANSPORTED WITH OXYGEN. NO SIGNS OR SYMPTOMS OF DISTRESS DURING DISCHARGE.
== END 2023-11-23 14:00 | disposition home or self-care (01) | DRG 189 ==
LOC: ER 13:58 → MEDS 17:14
PROVIDERS: Emergency Medicine; Student in an Organized Health Care Education/Training Program; ADMIT Family Medicine
PROC: 5A09357 Assistance with Respiratory Ventilation, Less than 24 Consecutive Hours, Continuous Positive Airway Pressure (ICD-10-PCS; principal; 2023-11-21)
DX: J96.21 Acute and chronic respiratory failure with hypoxia (principal); J44.1 Chronic obstructive pulmonary disease with (acute) exacerbation; J84.9 Interstitial pulmonary disease, unspecified; Z66 Do not resuscitate; M81.0 Age-related osteoporosis without current pathological fracture; E78.5 Hyperlipidemia, unspecified; I50.810 Right heart failure, unspecified; I11.0 Hypertensive heart disease with heart failure; F41.8 Other specified anxiety disorders; E66.3 Overweight; K21.9 Gastro-esophageal reflux disease without esophagitis; Z68.31 Body mass index [BMI] 31.0-31.9, adult; Z88.0 Allergy status to penicillin; Z91.040 Latex allergy status; Z99.81 Dependence on supplemental oxygen; Z90.721 Acquired absence of ovaries, unilateral; Z87.891 Personal history of nicotine dependence; Z98.890 Other specified postprocedural states; Z90.89 Acquired absence of other organs; Z79.52 Long term (current) use of systemic steroids; Z79.82 Long term (current) use of aspirin; Z79.899 Other long term (current) drug therapy
CPT/HCPCS: 36415; 71045; 80053; 82803; 83880; 84484; 85025; 93005; 93010; 94640; 94644; 94645; 94660; 94664; 94762; 96365; 96375; 99285-25; A9270; J0456; J0696; J1650; J2060; J2919; J7050

== ENCOUNTER 2023-12-09 18:48 | Emergency (ER) | payer MEDICARE, OTHER ==
[~2023-12-09] VITALS: Ht 160 cm; Wt 79.4 kg
[~2023-12-09 18:48] MED LIST changes: +AUSTEDO XR24 MG PO; +Acetaminophen325 M1 PO; +ISOSORBIDE MONO60 MG PO; +MYLANTA MAXIMUM10 ML PO; +SERT100 PO
[2023-12-09] MEDS ORDERED: Ipratropium/Albuterol SulF 2.5-0.5MG/3 ML Amp INH ONE (19:40)
[2023-12-09] MEDS ORDERED: MethylPREDNISolone Sod Succ 125 MG Vial IV ONE (19:40)
[2023-12-09 19:52] LABS: BASOPHILS ABSOLUTE AUTO 0.05 K/mm3 (0.00-0.23); BASOPHILS PERCENT AUTO 1 % (0-2); EOSINOPHILS PERCENT AUTO 6 % (0-6); Hematocrit 37.2 % (33.0-51.0); Hemoglobin 12.2 g/dL (11.5-16.0); IMMATURE GRAN ABSOLUTE AUTO 0.03 K/mm3 (0.00-0.10); IMMATURE GRAN PERCENT AUTO 0 % (0-1); LYMPHOCYTES ABSOLUTE AUTO 1.27 K/mm3 (0.84-5.20); LYMPHOCYTES PERCENT AUTO 19 % (21-46); MONOCYTES ABSOLUTE AUTO 0.45 K/mm3 (0.16-1.47); MONOCYTES PERCENT AUTO 7 % (4-13); Mean Corpuscular HGB 31.2 pg (26.0-34.0); Mean Corpuscular HGB Conc 32.8 g/dL (31.5-36.5); Mean Corpuscular Volume 95 fL (80-100); Mean Platelet Volume 10.4 fL (9.1-12.4); NEUTROPHILS ABSOLUTE AUTO 4.49 K/mm3 (1.96-9.15); NEUTROPHILS PERCENT AUTO 67 % (41-73); Platelet Count 136 K/mm3 (150-400); RDW Coefficient Variation 13.2 % (11.7-14.2); Red Blood Cell Count 3.91 M/mm3 (3.80-5.20); White Blood Cell Count 6.69 K/mm3 (4.00-11.30)
[2023-12-09 20:08] LABS: Bun/Creatinine Ratio 14.2 (12.0-20.0); Calcium, Blood 8.4 mg/dL (8.5-10.1); Creatinine, Blood 0.7 mg/dL (0.40-1.00); Potassium, Blood 3.9 mmol/L (3.5-5.5)
[2023-12-09 20:29] LABS: Influenza A, PCR NEGATIVE (NEGATIVE); Influenza B, PCR NEGATIVE (NEGATIVE); Resp Syncytial Virus, PCR NEGATIVE (NEGATIVE); SARS-Cov-2 (COVID-19) PCR, MMC NEGATIVE (NEGATIVE)
[2023-12-09] MEDS ORDERED: COMBIVENT RESPIM4 G1 INH (21:55)
[2023-12-09] MEDS ORDERED: RAYOS PO (21:55)
[2023-12-09 23:30] VITALS: BP 132/86
== END 2023-12-09 23:43 | disposition home or self-care (01) ==
LOC: ER 18:48
PROVIDERS: Emergency Medicine
DX: J44.1 Chronic obstructive pulmonary disease with (acute) exacerbation (principal); J84.9 Interstitial pulmonary disease, unspecified; I11.0 Hypertensive heart disease with heart failure; I50.810 Right heart failure, unspecified; E78.5 Hyperlipidemia, unspecified; K21.9 Gastro-esophageal reflux disease without esophagitis; M81.0 Age-related osteoporosis without current pathological fracture; Z99.81 Dependence on supplemental oxygen; Z88.0 Allergy status to penicillin; Z91.040 Latex allergy status; Z79.51 Long term (current) use of inhaled steroids; Z79.52 Long term (current) use of systemic steroids; Z79.82 Long term (current) use of aspirin; Z79.899 Other long term (current) drug therapy; Z87.891 Personal history of nicotine dependence
CPT/HCPCS: 0241U; 71045; 80048; 83880; 84484; 85025; 85379; 93005; 93010; 94640; 94664; 96374; 99285-25; J2919

== ENCOUNTER 2024-06-12 12:23 | Emergency (ER) | payer MEDICARE, OTHER ==
[~2024-06-12] VITALS: Ht 160 cm; Wt 71.2 kg
[~2024-06-12 12:23] MED LIST changes: +COMBIVENT RESPIM4 G1 INH; +RAYOS PO
[2024-06-12] MEDS ORDERED: MethylPREDNISolone Sod Succ 125 MG Vial IV ONE (12:55)
[2024-06-12] MEDS ORDERED: Albuterol 2.5 MG/3 ML VIAL INH SCH (12:55)
[2024-06-12 13:07] LABS: BASOPHILS ABSOLUTE AUTO 0.05 K/mm3 (0.00-0.23); BASOPHILS PERCENT AUTO 1 % (0-2); EOSINOPHILS ABSOLUTE AUTO 0.13 K/mm3 (0.00-0.68); EOSINOPHILS PERCENT AUTO 1 % (0-6); Hematocrit 37.4 % (33.0-51.0); Hemoglobin 12.1 g/dL (11.5-16.0); IMMATURE GRAN ABSOLUTE AUTO 0.05 K/mm3 (0.00-0.10); IMMATURE GRAN PERCENT AUTO 1 % (0-1); LYMPHOCYTES ABSOLUTE AUTO 0.63 K/mm3 (0.84-5.20); LYMPHOCYTES PERCENT AUTO 6 % (21-46); MONOCYTES ABSOLUTE AUTO 0.53 K/mm3 (0.16-1.47); MONOCYTES PERCENT AUTO 5 % (4-13); Mean Corpuscular HGB 30.4 pg (26.0-34.0); Mean Corpuscular HGB Conc 32.4 g/dL (31.5-36.5); Mean Corpuscular Volume 94 fL (80-100); Mean Platelet Volume 10.6 fL (9.1-12.4); NEUTROPHILS ABSOLUTE AUTO 9.07 K/mm3 (1.96-9.15); NEUTROPHILS PERCENT AUTO 87 % (41-73); Platelet Count 147 K/mm3 (150-400); RDW Coefficient Variation 13.2 % (11.7-14.2); RDW Standard Deviation 45.4 fL (35.1-46.3); Red Blood Cell Count 3.98 M/mm3 (3.80-5.20); White Blood Cell Count 10.46 K/mm3 (4.00-11.30)
[2024-06-12 13:35] LABS: Albumin, Blood 3.2 g/dL (3.4-5.0); Albumin/Globulin Ratio 0.9 (0.8-1.8); Bilirubin, Total 0.3 mg/dL (0.1-1.0); Bun/Creatinine Ratio 20.1 (12.0-20.0); Calcium, Blood 8.8 mg/dL (8.5-10.1); Creatinine, Blood 0.5 mg/dL (0.40-1.00); Globulin, Blood 3.4 g/dL (2.2-4.0); Magnesium, Blood 1.6 mg/dL (1.6-2.4); Potassium, Blood 4.1 mmol/L (3.5-5.5); Total Protein, Blood 6.6 g/dL (6.4-8.2)
[2024-06-12 13:47] VITALS: BP 118/85
[2024-06-12 13:57] LABS: Bicarbonate Venous 29.9 mmol/L (24.0-30.0); PCO2 Venous 47.4 mmHg (38-42); pH Blood Venous 7.43 (7.34-7.37)
[2024-06-12] MEDS ORDERED: Azithromycin 250 MG Tab PO ONE (14:05)
[2024-06-12 14:14] LABS: Source, Urine Fem Cath
[2024-06-12 14:18] LABS: Appearance, Urine Clear (Clear); Bilirubin, Urine Neg (Neg); Blood, Urine 2+ (Neg); Color, Urine Yellow (P-Yellow); Glucose Qualitative, Urine Neg (Neg); Ketones, Urine 2+ (Neg); Leukocyte Esterase, Urine Neg (Neg); Nitrite, Urine Neg (Neg); Protein, Urine 2+ (Neg); Urobilinogen, Urine 1+ (Normal)
[2024-06-12] MEDS ORDERED: AZIT250 PO (14:25)
[2024-06-12] MEDS ORDERED: PRED20 PO (14:25)
[2024-06-12 14:36] LABS: Bacteria Many /hpf; Hyaline Casts 0-2 /lpf (0-2); Mucus Light (0-Heavy); Squamous Epithelial Cells Few /hpf (Few); White Blood Cells, Urine 0-2 /hpf (0-5)
[2024-06-12 14:49] LABS: Influenza A, PCR NEGATIVE (NEGATIVE); Influenza B, PCR NEGATIVE (NEGATIVE); Resp Syncytial Virus, PCR NEGATIVE (NEGATIVE); SARS-Cov-2 (COVID-19) PCR, MMC NEGATIVE (NEGATIVE)
== END 2024-06-12 15:47 | disposition home or self-care (01) ==
LOC: ER 12:23
PROVIDERS: Emergency Medicine
DX: J44.1 Chronic obstructive pulmonary disease with (acute) exacerbation (principal); I11.0 Hypertensive heart disease with heart failure; I50.9 Heart failure, unspecified; E78.5 Hyperlipidemia, unspecified; K21.9 Gastro-esophageal reflux disease without esophagitis; M81.0 Age-related osteoporosis without current pathological fracture; Z87.891 Personal history of nicotine dependence; Z88.0 Allergy status to penicillin; Z91.040 Latex allergy status; Z79.1 Long term (current) use of non-steroidal anti-inflammatories (NSAID); Z79.890 Hormone replacement therapy; Z79.82 Long term (current) use of aspirin; Z79.2 Long term (current) use of antibiotics; Z79.52 Long term (current) use of systemic steroids; Z79.51 Long term (current) use of inhaled steroids; Z79.899 Other long term (current) drug therapy; Z99.81 Dependence on supplemental oxygen
CPT/HCPCS: 0241U; 71045; 80053; 81001; 82803; 83605; 83735; 84484; 85025; 87086; 94644; 94664; 96374; 99285-25; A9270; J2919

== ENCOUNTER 2024-06-21 01:18 | Inpatient (IN) | payer MEDICARE, OTHER ==
[~2024-06-21] VITALS: Ht 160 cm; Wt 72.3 kg
[~2024-06-21 01:18] MED LIST changes: +AZIT500 PO
[2024-06-21] MEDS ORDERED: Midazolam HCl 1MG / ML 2ML Vial ONE (01:22)
[2024-06-21] MEDS ORDERED: Midazolam HCl 1MG / ML 2ML Vial IV SCH (01:25)
[2024-06-21] MEDS ORDERED: Albuterol 2.5 MG/3 ML VIAL ONE (01:27)
[2024-06-21] MEDS ORDERED: Ipratropium/Albuterol SulF 2.5-0.5MG/3 ML Amp ONE (01:27)
[2024-06-21] MEDS ORDERED: Ipratropium Bromide INH 0.02% 0.5 mg/2.5ML Vial INH ONE (01:35)
[2024-06-21] MEDS ORDERED: Albuterol 2.5 MG/3 ML VIAL INH ONE (01:35)
[2024-06-21 01:46] LABS: PCO2 Venous 56.7 mmHg (38-42); pH Blood Venous 7.37 (7.34-7.37)
[2024-06-21 01:47] LABS: Base Excess Venous 7.5 mmol/L; Bicarbonate Venous 29.5 mmol/L (24.0-30.0)
[2024-06-21] MEDS ORDERED: CefTRIAXone Sodium 1,000 MG in NS 50 ML IV ONE (01:50)
[2024-06-21 02:02] LABS: Source, Urine Clean Catch
[2024-06-21] MEDS ORDERED: Acetaminophen 500 MG Tab PO ONE (02:05)
[2024-06-21 02:06] LABS: Albumin, Blood 3.2 g/dL (3.4-5.0); Albumin/Globulin Ratio 0.8 (0.8-1.8); Bilirubin, Total 0.5 mg/dL (0.1-1.0); Bun/Creatinine Ratio 18.1 (12.0-20.0); Calcium, Blood 9.2 mg/dL (8.5-10.1); Creatinine, Blood 0.55 mg/dL (0.40-1.00); Magnesium, Blood 1.7 mg/dL (1.6-2.4); Phosphorus, Blood 3.5 mg/dL (2.5-4.9); Potassium, Blood 3.6 mmol/L (3.5-5.5); Total Protein, Blood 7.2 g/dL (6.4-8.2)
[2024-06-21 02:14] LABS: BASOPHILS ABSOLUTE AUTO 0.04 K/mm3 (0.00-0.23); BASOPHILS PERCENT AUTO 0 % (0-2); EOSINOPHILS ABSOLUTE AUTO 0.32 K/mm3 (0.00-0.68); EOSINOPHILS PERCENT AUTO 2 % (0-6); Hematocrit 41.6 % (33.0-51.0); Hemoglobin 13.3 g/dL (11.5-16.0); IMMATURE GRAN ABSOLUTE AUTO 0.08 K/mm3 (0.00-0.10); IMMATURE GRAN PERCENT AUTO 1 % (0-1); LYMPHOCYTES ABSOLUTE AUTO 1.56 K/mm3 (0.84-5.20); LYMPHOCYTES PERCENT AUTO 12 % (21-46); MONOCYTES ABSOLUTE AUTO 1.06 K/mm3 (0.16-1.47); MONOCYTES PERCENT AUTO 8 % (4-13); Mean Corpuscular HGB 29.5 pg (26.0-34.0); Mean Corpuscular Volume 92 fL (80-100); Mean Platelet Volume 10.3 fL (9.1-12.4); NEUTROPHILS ABSOLUTE AUTO 10.29 K/mm3 (1.96-9.15); NEUTROPHILS PERCENT AUTO 77 % (41-73); Platelet Count 203 K/mm3 (150-400); RDW Coefficient Variation 13.1 % (11.7-14.2); RDW Standard Deviation 44.8 fL (35.1-46.3); Red Blood Cell Count 4.51 M/mm3 (3.80-5.20); White Blood Cell Count 13.35 K/mm3 (4.00-11.30)
[2024-06-21] MEDS ORDERED: Vancomycin HCL 1,750 MG in NS 500 ML IV ONE (02:15)
[2024-06-21 02:17] LABS: Bilirubin, Urine Neg (Neg); Blood, Urine 5+ (Neg); Glucose Qualitative, Urine Neg (Neg); Ketones, Urine 1+ (Neg); Leukocyte Esterase, Urine 2+ (Neg); Nitrite, Urine Neg (Neg); Protein, Urine 3+ (Neg); Urobilinogen, Urine 1+ (Normal)
[2024-06-21 02:22] LABS: D-Dimer, Quantitative 1.18 mg/L FEU (0.00-0.52); International Normalized Ratio 1.02; Prothrombin Time Results 10.9 Sec (9.7-11.5)
[2024-06-21 02:23] LABS: Appearance, Urine Hazy (Clear); Color, Urine Yellow (P-Yellow)
[2024-06-21 02:25] LABS: White Blood Cells, Urine 25-50 /hpf (0-5)
[2024-06-21 02:27] LABS: Bacteria Mod /hpf; Squamous Epithelial Cells Few /hpf (Few); Uric Acid Crystals Mod /hpf
[2024-06-21 02:31] LABS: Influenza A, PCR NEGATIVE (NEGATIVE); Influenza B, PCR NEGATIVE (NEGATIVE); Resp Syncytial Virus, PCR NEGATIVE (NEGATIVE); SARS-Cov-2 (COVID-19) PCR, MMC NEGATIVE (NEGATIVE)
[2024-06-21] MEDS ORDERED: Ondansetron HCl 2 MG / ML 2ML Vial IV PRN (03:10)
[2024-06-21] MEDS ORDERED: Ipratropium/Albuterol SulF 2.5-0.5MG/3 ML Amp INH PRN (03:10)
[2024-06-21] MEDS ORDERED: ZYRTEC10 M3 PO (03:17)
[2024-06-21] MEDS ORDERED: COMBIVENT RESPIM4 G1 INH (03:19)
[2024-06-21] MEDS ORDERED: IPRAT-ALBUT 0.5-3 ML INH (03:20)
[2024-06-21] MEDS ORDERED: NYSTRIT TOP (03:21)
[2024-06-21] MEDS ORDERED: MELATONIN5 M1 PO (03:21)
[2024-06-21] MEDS ORDERED: OMEP20ER PO (03:22)
[2024-06-21] MEDS ORDERED: Azithromycin 500 MG in NS 250 ML IV SCH (03:48)
[2024-06-21 04:58] VITALS: BP 119/77
[2024-06-21 05:28] LABS: BASOPHILS ABSOLUTE AUTO 0.04 K/mm3 (0.00-0.23); BASOPHILS PERCENT AUTO 0 % (0-2); EOSINOPHILS ABSOLUTE AUTO 0.19 K/mm3 (0.00-0.68); EOSINOPHILS PERCENT AUTO 2 % (0-6); Hematocrit 39.6 % (33.0-51.0); Hemoglobin 12.6 g/dL (11.5-16.0); IMMATURE GRAN ABSOLUTE AUTO 0.07 K/mm3 (0.00-0.10); IMMATURE GRAN PERCENT AUTO 1 % (0-1); LYMPHOCYTES ABSOLUTE AUTO 0.95 K/mm3 (0.84-5.20); LYMPHOCYTES PERCENT AUTO 7 % (21-46); MONOCYTES ABSOLUTE AUTO 0.88 K/mm3 (0.16-1.47); MONOCYTES PERCENT AUTO 7 % (4-13); Mean Corpuscular HGB 29.7 pg (26.0-34.0); Mean Corpuscular HGB Conc 31.8 g/dL (31.5-36.5); Mean Corpuscular Volume 93 fL (80-100); Mean Platelet Volume 10.3 fL (9.1-12.4); NEUTROPHILS ABSOLUTE AUTO 10.78 K/mm3 (1.96-9.15); NEUTROPHILS PERCENT AUTO 84 % (41-73); Platelet Count 187 K/mm3 (150-400); RDW Coefficient Variation 13.2 % (11.7-14.2); RDW Standard Deviation 45.1 fL (35.1-46.3); Red Blood Cell Count 4.24 M/mm3 (3.80-5.20); White Blood Cell Count 12.91 K/mm3 (4.00-11.30)
[2024-06-21 05:49] LABS: Albumin, Blood 3.1 g/dL (3.4-5.0); Albumin/Globulin Ratio 0.8 (0.8-1.8); Bilirubin, Total 0.4 mg/dL (0.1-1.0); Bun/Creatinine Ratio 16.2 (12.0-20.0); Creatinine, Blood 0.62 mg/dL (0.40-1.00); Globulin, Blood 4.1 g/dL (2.2-4.0); Potassium, Blood 3.3 mmol/L (3.5-5.5); Total Protein, Blood 7.2 g/dL (6.4-8.2)
[2024-06-21] MEDS ORDERED: MethylPREDNISolone Sod Succ 125 MG Vial IV SCH ×2 (06:00→08:00)
[2024-06-21] MEDS ORDERED: Acetaminophen 325 MG TABLET PO PRN (06:30)
--- NOTE | 2024-06-21 06:37 | NUR ---
68 Y/O FEMALE ADMITTED AT 0415 FROM ED FOR COPD EXACERBATION. PATIENT IS NORMALLY ON 4LO2 VIA NC. PATIENT IS ALERT, ORIENTATED. ABLE TO MAKE NEEDS KNOWN. PUREWICK PLACED. HAS NOT HAD ANY OUTPUT SINCE ADMISSION TO FLOOR. IS ON 3.5 LITERS OF O2 NOW. BIPAP ON STANDBY. GROIN FOLDS EXTREMLY RED. INTRADRY SHEETS PLACED. CURRENTLY DOWN FOR A HEAD CT. PLAN TO RETURN TO ASSISTED LIVING FACILITY UPON DISCHARGE. CONTINUE CARE
--- NOTE | 2024-06-21 06:37 | NUR ---
PATIENT DOWN TO CT NOW OF THE HEAD VIA CART
[2024-06-21] MEDS ORDERED: Albuterol HFA200 ACT/6.7 GM INH INH PRN (07:05)
[2024-06-21] MEDS ORDERED: Mometasone/Formoterol MDI 100/5 mcg 13 GM INH SCH (07:20)
[2024-06-21] MEDS ORDERED: Ipratropium Bromide INH 0.02% 0.5 mg/2.5ML Vial INH SCH (07:25)
[2024-06-21 07:27] VITALS: BP 111/65
[2024-06-21] MEDS ORDERED: Potassium Chloride 20 MEQ TabCR PO ONE (08:00)
[2024-06-21] MEDS ORDERED: Enoxaparin 40 MG/0.4 ML SYR SC SCH (09:00)
[2024-06-21] MEDS ORDERED: Isosorbide Mononitrate 60 MG TABCR PO SCH (09:00)
[2024-06-21] MEDS ORDERED: Nystatin/Triamcinolone Ointment 15 GM TOP SCH (09:00)
[2024-06-21] MEDS ORDERED: Sertraline HCl 100 MG Tab PO SCH (09:00)
[2024-06-21] MEDS ORDERED: Omeprazole 20 MG CapCR PO SCH (09:00)
[2024-06-21] MEDS ORDERED: Famotidine 20 MG Tab PO SCH (09:00)
[2024-06-21] MEDS ORDERED: Aspirin 81 MG TabEC PO SCH (09:00)
[2024-06-21] MEDS ORDERED: Misc. Tablet PO SCH (09:00)
[2024-06-21 12:05] VITALS: BP 109/73
[2024-06-21 16:04] VITALS: BP 135/88
--- NOTE | 2024-06-21 18:41 | NUR ---
SHIFT SUMMARY: PT A&OX4. FOLLOWS COMMANDS AND MAKES NEEDS KNOWN TO STAFF. PT WAS ABLE TO GET UP TO THE BSC AND CHAIR TODAY WITH 1 PERSON ASSIST AND FWW. PT REPORTED SOB OFF AND ON TODAY. DENIES ANY CP. PT WAS VERY DROUSY THROUGHOUT MOST OF THE SHIFT AND SLEPT A MAJORITY OF THE TIME. NO SIGNIFICANT EVENTS HAPPENED DURING THIS SHIFT. WILL CONTINUE TO CARE FOR PT TILL END OF SHIFT.
[2024-06-21] MEDS ORDERED: Melatonin 5 MG Tablet PO SCH (21:00)
[2024-06-21] MEDS ORDERED: ARIPiprazole 10 MG Tab PO SCH (21:00)
[2024-06-21 21:11] VITALS: BP 136/82
[2024-06-22 00:26] VITALS: BP 138/93
[2024-06-22 04:00] VITALS: BP 124/82
[2024-06-22 04:04] LABS: BASOPHILS ABSOLUTE AUTO 0.02 K/mm3 (0.00-0.23); BASOPHILS PERCENT AUTO 0 % (0-2); EOSINOPHILS PERCENT AUTO 0 % (0-6); Hematocrit 33.3 % (33.0-51.0); Hemoglobin 10.8 g/dL (11.5-16.0); IMMATURE GRAN ABSOLUTE AUTO 0.09 K/mm3 (0.00-0.10); IMMATURE GRAN PERCENT AUTO 1 % (0-1); LYMPHOCYTES ABSOLUTE AUTO 0.51 K/mm3 (0.84-5.20); LYMPHOCYTES PERCENT AUTO 5 % (21-46); MONOCYTES ABSOLUTE AUTO 0.44 K/mm3 (0.16-1.47); MONOCYTES PERCENT AUTO 4 % (4-13); Mean Corpuscular HGB 29.4 pg (26.0-34.0); Mean Corpuscular HGB Conc 32.4 g/dL (31.5-36.5); Mean Corpuscular Volume 91 fL (80-100); Mean Platelet Volume 10.3 fL (9.1-12.4); NEUTROPHILS PERCENT AUTO 90 % (41-73); Platelet Count 167 K/mm3 (150-400); RDW Coefficient Variation 12.7 % (11.7-14.2); RDW Standard Deviation 42.5 fL (35.1-46.3); Red Blood Cell Count 3.67 M/mm3 (3.80-5.20); White Blood Cell Count 10.76 K/mm3 (4.00-11.30)
[2024-06-22 04:31] LABS: Albumin, Blood 2.6 g/dL (3.4-5.0); Albumin/Globulin Ratio 0.7 (0.8-1.8); Bilirubin, Total 0.4 mg/dL (0.1-1.0); Bun/Creatinine Ratio 21.3 (12.0-20.0); Calcium, Blood 8.7 mg/dL (8.5-10.1); Creatinine, Blood 0.42 mg/dL (0.40-1.00); Globulin, Blood 3.6 g/dL (2.2-4.0); Total Protein, Blood 6.2 g/dL (6.4-8.2)
[2024-06-22] MEDS ORDERED: NS 250 ML IV PRN (05:45)
[2024-06-22] MEDS ORDERED: CefTRIAXone Sodium 1,000 MG in NS 100 ML IV SCH (06:00)
--- NOTE | 2024-06-22 06:25 | NUR ---
SHIFT SUMMARY: PT IS A&OX4 PLEASANT AND COOPERATIVE WITH CARE. VSS ON 3L NC. SR 70'S-80'S. PT IS TREMULOUS IN BUE, PT STATES THIS IS NOT NEW FOR HER. SLEPT T/O THIS SHIFT, BUT EASILY ARROUSABLE. DENIES PAIN. PT REPOSITIONING SELF IN BED. TOLERATING A REGULAR DIET. X1 ASSIST WITH FWW TO BSC. VOIDING ADEQUATE AMOUNTS OF YELLOW URINE. NO BM THIS SHIFT. NO BOWEL CARE ORDERED. BED IN LOWEST POSITION, CALL LIGHT WITHIN REACH. CALLS APPROPRIATELY AND IS ABLE TO ADVOCATE NEEDS EFFECTIVELY.
[2024-06-22 08:55] VITALS: BP 120/71
[2024-06-22] MEDS ORDERED: PredniSONE 20 MG Tab PO SCH (09:00)
--- NOTE | 2024-06-22 09:30 | NUR ---
TRANSFER TO MEDICAL FLOOR: REPORT CALLED TO MEDICAL FLOOR RN. PTS BELONGINGS COLLECTED AND TAKEN TO ROOM 358 WITH. NO SIGNIFICANT EVENTS HAVE HAPPENED SINCE BEGINNING OF SHIFT. SON CALLED AND NOTIFIED OF TRANSFER.
--- NOTE | 2024-06-22 09:41 | NUR ---
UPDATE: THIS RN CALLED [facility] REGARDING PTS HOME MED. STAFF SAID THAT THEY WOULD BRING IT TO THIS FACILITY. NURSE FOR ROOM 358 NOTIFIED.
[2024-06-22 15:52] VITALS: BP 127/81
--- NOTE | 2024-06-22 17:33 | NUR ---
SHIFT SUMMARY PT TRANSFERED FROM PCU 13 TO ROOM 358 THIS SHIFT. PT NOTED TO BE A&O X4 AND ASSIST X1 WITH FWW. PT NOTED TO UTILIZE 3L/NC PT BASELINE IS 3.5L. PT NOTED TO BE WEAKER ON L SIDE VS R SIDE ORDERS PLACED FOR PT/OT EVAL AND TX. PLAN IS TO POSSIBLE DC IN 1-2 DAYS. PT HAS NEW ORDER FOR HOME MEDICATION WHICH WAS APPROVED BY PHARMACY AND PLACED IN PT DRAW.
[2024-06-22 19:42] VITALS: BP 146/92
[2024-06-23 02:00] VITALS: BP 137/77
--- NOTE | 2024-06-23 04:40 | NUR ---
SHIFT SUMMARY: PT AOX4 CALLS APPROPRIATELY AND ABLE TO MAKE NEEDS KNOWN. SBA/1PA TO THE BSC. TOLERATING O2 @ 4L NC. HAD SOME INCREASED WHEEZING, BREATHING TREATMENT DONE PER REQUEST. NO ACUTE EVENTS OVERNIGHT. PT IN BED RESTING, BED IN LOWEST POSITION, CALL LIGHT IN REACH. CONTINUING CARE.
[2024-06-23 04:55] LABS: BASOPHILS ABSOLUTE AUTO 0.02 K/mm3 (0.00-0.23); BASOPHILS PERCENT AUTO 0 % (0-2); EOSINOPHILS ABSOLUTE AUTO 0.01 K/mm3 (0.00-0.68); EOSINOPHILS PERCENT AUTO 0 % (0-6); Hemoglobin 11.6 g/dL (11.5-16.0); IMMATURE GRAN ABSOLUTE AUTO 0.19 K/mm3 (0.00-0.10); IMMATURE GRAN PERCENT AUTO 2 % (0-1); LYMPHOCYTES ABSOLUTE AUTO 0.86 K/mm3 (0.84-5.20); LYMPHOCYTES PERCENT AUTO 8 % (21-46); MONOCYTES ABSOLUTE AUTO 0.66 K/mm3 (0.16-1.47); MONOCYTES PERCENT AUTO 6 % (4-13); Mean Corpuscular HGB 29.5 pg (26.0-34.0); Mean Corpuscular HGB Conc 32.2 g/dL (31.5-36.5); Mean Corpuscular Volume 92 fL (80-100); Mean Platelet Volume 9.7 fL (9.1-12.4); NEUTROPHILS ABSOLUTE AUTO 9.52 K/mm3 (1.96-9.15); NEUTROPHILS PERCENT AUTO 85 % (41-73); NRBC ABSOLUTE 0.02 K/mm3 (0.00-0.02); NRBC Auto 0.2 /100 WBC (0.0-0.2); Platelet Count 173 K/mm3 (150-400); RDW Coefficient Variation 12.8 % (11.7-14.2); RDW Standard Deviation 42.7 fL (35.1-46.3); Red Blood Cell Count 3.93 M/mm3 (3.80-5.20); White Blood Cell Count 11.26 K/mm3 (4.00-11.30)
[2024-06-23 05:27] LABS: Albumin, Blood 2.9 g/dL (3.4-5.0); Albumin/Globulin Ratio 0.8 (0.8-1.8); Bilirubin, Total 0.3 mg/dL (0.1-1.0); Bun/Creatinine Ratio 24.8 (12.0-20.0); Calcium, Blood 9.1 mg/dL (8.5-10.1); Creatinine, Blood 0.48 mg/dL (0.40-1.00); Globulin, Blood 3.7 g/dL (2.2-4.0); Potassium, Blood 4.2 mmol/L (3.5-5.5); Total Protein, Blood 6.6 g/dL (6.4-8.2)
[2024-06-23 07:18] VITALS: BP 150/102
[2024-06-23] MEDS ORDERED: AUSTEDO 24 MG PO SCH (09:00)
[2024-06-23 11:35] VITALS: BP 116/78
[2024-06-23] MEDS ORDERED: CEFD300 PO (11:48)
--- NOTE | 2024-06-23 15:48 | NUR ---
DC SUMMARY PT DC THIS SHIFT. DC INSTRUCTION GONE OVER WITH PT BY SUNSHINE OLGUIN. PT LEFT VIA WHEELCHAIR BY TRANSPORTATION SERVICE. PT GIVEN HOME MEDICATION AND PLACED IN BELONG BAG.
== END 2024-06-23 15:42 | disposition home health service (06) | DRG 193 ==
LOC: ER 01:18 → ERHOLD 02:46 → PCU 02:46 → MEDS 02:46 → PCU 04:17 → MEDS 06-22 09:37
PROVIDERS: Emergency Medicine; Family Medicine; ADMIT Internal Medicine
PROC: 5A09357 Assistance with Respiratory Ventilation, Less than 24 Consecutive Hours, Continuous Positive Airway Pressure (ICD-10-PCS; principal; 2024-06-21)
DX: J18.9 Pneumonia, unspecified organism (principal); J96.21 Acute and chronic respiratory failure with hypoxia; J44.1 Chronic obstructive pulmonary disease with (acute) exacerbation; J44.0 Chronic obstructive pulmonary disease with (acute) lower respiratory infection; J84.9 Interstitial pulmonary disease, unspecified; G93.40 Encephalopathy, unspecified; N39.0 Urinary tract infection, site not specified; F31.9 Bipolar disorder, unspecified; G24.01 Drug induced subacute dyskinesia; R53.1 Weakness; I11.0 Hypertensive heart disease with heart failure; Z66 Do not resuscitate; I50.9 Heart failure, unspecified; F41.8 Other specified anxiety disorders; K21.9 Gastro-esophageal reflux disease without esophagitis; Z74.09 Other reduced mobility; M81.0 Age-related osteoporosis without current pathological fracture; E78.5 Hyperlipidemia, unspecified; Z91.040 Latex allergy status; Z88.0 Allergy status to penicillin; Z79.51 Long term (current) use of inhaled steroids; Z79.899 Other long term (current) drug therapy; Z79.52 Long term (current) use of systemic steroids; Z99.81 Dependence on supplemental oxygen; Z79.2 Long term (current) use of antibiotics; Z79.82 Long term (current) use of aspirin; Z87.891 Personal history of nicotine dependence
CPT/HCPCS: 0241U; 36415; 70450; 71045; 80053; 81001; 82803; 83605; 83735; 83880; 84100; 84484; 85025; 85379; 85610; 85730; 87040; 87070; 87077; 87086; 87186; 87205; 92610; 93005; 93010; 94640; 94644; 94660; 94664; 94760; 94762; 96374; 97116; 97161; 99285-25; A9270; J0456; J0696; J1650; J2250; J2919; J3370; J7040; J7050; J7512

== ENCOUNTER → 2024-07-18 | Outpatient (CLI) | payer MEDICARE, OTHER ==
[~2024-07-18] MED LIST changes: +CEFD300 PO; +IPRAT-ALBUT 0.5-3 ML INH; +NYSTRIT TOP; +ZYRTEC10 M3 PO
[2024-07-18 15:26] LABS: Bilirubin, Urine Neg (Neg); Blood, Urine 1+ (Neg); Glucose Qualitative, Urine Neg (Neg); Ketones, Urine Neg (Neg); Leukocyte Esterase, Urine 2+ (Neg); Nitrite, Urine Neg (Neg); Protein, Urine 2+ (Neg); Specific Gravity, Urine 1.025 (1.003-1.022); Urobilinogen, Urine 1+ (Normal)
[2024-07-18 15:35] LABS: Appearance, Urine Hazy (Clear); Color, Urine Yellow (P-Yellow)
[2024-07-18 15:36] LABS: Bacteria Many /hpf; Calcium Oxalate Crystals Rare /hpf; Mucus Heavy (0-Heavy); Red Blood Cells, Urine 0-2 /hpf (0-2); Squamous Epithelial Cells Mod /hpf (Few)
== END ==
LOC: LAB 14:54 → LAB SHORT 14:54
PROVIDERS: Physician Assistant
DX: N39.0 Urinary tract infection, site not specified (principal)
CPT/HCPCS: 81001; 87086

== ENCOUNTER 2024-08-30 12:01 | Inpatient (IN) | payer MEDICARE, OTHER ==
[~2024-08-30] VITALS: Ht 162.6 cm; Wt 67.3 kg
[~2024-08-30 12:01] MED LIST changes: +ALBU8HFA2 INH; +Loperamide2 MG PO; +TRAZ50 PO; +TRELEGY ELLIPT1 EAC1 IH; +Vitamin D1000 UNI1 PO
[2024-08-30 12:18] LABS: BASOPHILS ABSOLUTE AUTO 0.05 K/mm3 (0.00-0.23); BASOPHILS PERCENT AUTO 0 % (0-2); EOSINOPHILS ABSOLUTE AUTO 0.30 K/mm3 (0.00-0.68); EOSINOPHILS PERCENT AUTO 3 % (0-6); Hematocrit 39.6 % (33.0-51.0); Hemoglobin 12.5 g/dL (11.5-16.0); IMMATURE GRAN ABSOLUTE AUTO 0.06 K/mm3 (0.00-0.10); IMMATURE GRAN PERCENT AUTO 1 % (0-1); LYMPHOCYTES ABSOLUTE AUTO 2.22 K/mm3 (0.84-5.20); LYMPHOCYTES PERCENT AUTO 19 % (21-46); MONOCYTES ABSOLUTE AUTO 0.76 K/mm3 (0.16-1.47); MONOCYTES PERCENT AUTO 7 % (4-13); Mean Corpuscular HGB Conc 31.6 g/dL (31.5-36.5); Mean Corpuscular Volume 93 fL (80-100); NEUTROPHILS ABSOLUTE AUTO 8.05 K/mm3 (1.96-9.15); NEUTROPHILS PERCENT AUTO 71 % (41-73); NRBC ABSOLUTE 0.00 K/mm3 (0.00-0.02); NRBC Auto 0.0 /100 WBC (0.0-0.2); Platelet Count 188 K/mm3 (150-400); RDW Coefficient Variation 14.2 % (11.7-14.2); RDW Standard Deviation 48.5 fL (35.1-46.3)
[2024-08-30 12:21] LABS: pH Blood Venous 7.28 (7.34-7.37)
[2024-08-30 12:45] LABS: Alanine Aminotransfer (ALT/SGP 26.0 U/L (12-78); Albumin, Blood 3.4 g/dL (3.4-5.0); Albumin/Globulin Ratio 1.0 (0.8-1.8); Anion Gap 7.0 mmol/L (3-11); Aspartate Aminotrans (AST/SGOT 24.0 U/L (12-37); Bilirubin, Total 0.4 mg/dL (0.1-1.0); Blood Urea Nitrogen 11.0 mg/dL (8-24); CO2, Blood 33.0 mmol/L (21-32); Calcium, Blood 8.5 mg/dL (8.5-10.1); Chloride, Blood 105.0 mmol/L (98-108); Creatinine, Blood 0.6 mg/dL (0.40-1.00); Globulin, Blood 3.3 g/dL (2.2-4.0); Glucose, Blood 141.0 mg/dL (70-99); Potassium, Blood 3.5 mmol/L (3.5-5.5); Sodium, Blood 141.0 mmol/L (136-145); Total Protein, Blood 6.7 g/dL (6.4-8.2)
[2024-08-30] MEDS ORDERED: Albuterol 2.5 MG/3 ML VIAL INH SCH ×2 (13:25→16:10)
[2024-08-30] MEDS ORDERED: Formoterol/Mometasone MDI 5/200 mcg 13 GM INH SCH (16:05)
[2024-08-30] MEDS ORDERED: Tiotropium Bromide 2.5 MCG/ACT MIST INHAL (10 ACT/4 GM) INH SCH (16:05)
[2024-08-30 16:07] VITALS: BP 120/76
[2024-08-30] MEDS ORDERED: PRED5 PO (16:07)
[2024-08-30] MEDS ORDERED: OMEP20ER PO (16:07)
[2024-08-30] MEDS ORDERED: NYSTATIN TOP (16:10)
[2024-08-30] MEDS ORDERED: DULCOLAX400 MG/5 M PO (16:11)
[2024-08-30] MEDS ORDERED: MECL25 PO (16:12)
[2024-08-30] MEDS ORDERED: LOPE2C PO (16:13)
[2024-08-30] MEDS ORDERED: COMBIVENT RESPIM4 G1 PO (16:14)
[2024-08-30] MEDS ORDERED: LIDO700A20 TOP (16:14)
[2024-08-30] MEDS ORDERED: IPRAT-ALBUT 0.5-3 ML INH (16:16)
--- NOTE | 2024-08-30 17:48 | NUR ---
PT ARRIVED TO UNIT @ 1532 FROM ED VIA GURNEY. TRANSFERRED HER TO BED, GAVE HER BED BATH, CHANGED HER INTO A GOWN, TOOK VS AND OBTAINED WEIGHT. PT IS A&Ox4 AND ABLE TO MAKE NEEDS KNOWN, SHE IS JUST A LITTLE SLOW TO RESPOND @ TIMES. SHE IS ON 3LNC W/O2 SATS >90%. NO NEEDS OR CONCERNS NOTED @ THIS TIME. BED IN LOW POSITION, CALL LIGHT AND PHONE IN REACH.
[2024-08-30 17:57] LABS: pH Blood Venous 7.46 (7.34-7.37)
[2024-08-30 19:31] VITALS: BP 125/86
[2024-08-30 23:50] VITALS: BP 120/67
[2024-08-31 03:25] VITALS: BP 121/76
[2024-08-31 04:24] LABS: BASOPHILS ABSOLUTE AUTO 0.00 K/mm3 (0.00-0.23); BASOPHILS PERCENT AUTO 0 % (0-2); EOSINOPHILS ABSOLUTE AUTO 0.00 K/mm3 (0.00-0.68); EOSINOPHILS PERCENT AUTO 0 % (0-6); Hematocrit 34.8 % (33.0-51.0); Hemoglobin 11.4 g/dL (11.5-16.0); IMMATURE GRAN ABSOLUTE AUTO 0.06 K/mm3 (0.00-0.10); IMMATURE GRAN PERCENT AUTO 1 % (0-1); LYMPHOCYTES ABSOLUTE AUTO 0.42 K/mm3 (0.84-5.20); LYMPHOCYTES PERCENT AUTO 6 % (21-46); MONOCYTES ABSOLUTE AUTO 0.13 K/mm3 (0.16-1.47); MONOCYTES PERCENT AUTO 2 % (4-13); Mean Corpuscular HGB Conc 32.8 g/dL (31.5-36.5); Mean Corpuscular Volume 91 fL (80-100); NEUTROPHILS ABSOLUTE AUTO 6.87 K/mm3 (1.96-9.15); NEUTROPHILS PERCENT AUTO 92 % (41-73); NRBC ABSOLUTE 0.00 K/mm3 (0.00-0.02); NRBC Auto 0.0 /100 WBC (0.0-0.2); Platelet Count 167 K/mm3 (150-400); RDW Coefficient Variation 13.8 % (11.7-14.2); RDW Standard Deviation 46.5 fL (35.1-46.3)
[2024-08-31 04:50] LABS: Anion Gap 6.0 mmol/L (3-11); Blood Urea Nitrogen 10.0 mg/dL (8-24); CO2, Blood 34.0 mmol/L (21-32); Calcium, Blood 8.6 mg/dL (8.5-10.1); Chloride, Blood 103.0 mmol/L (98-108); Creatinine, Blood 0.46 mg/dL (0.40-1.00); Glucose, Blood 138.0 mg/dL (70-99); Potassium, Blood 3.5 mmol/L (3.5-5.5); Sodium, Blood 139.0 mmol/L (136-145)
--- NOTE | 2024-08-31 05:56 | NUR ---
NOC SHIFT SUMMARY PT IS A+O X4 ABLE TO MAKE NEEDS KNOWN, IS SLOW TO RESPOND ESPECIALLY UPON AWAKENING. PT WAS ABLE TO REST MOST OF THE NIGHT. O2 HAS BEEN TITRATED DOWN TO HER BASELINE OF 2L NC SATURATIONS >90% SPO2. DENIES SOB. ONE PERSON STAND PIVOT TO THE BSC FOR VOIDING. TELE IN PLACE SHOWING SINUS AT A RATE OF 74 AT THIS TIME. DENIES CHEST PAIN OR PRESSURE. USES ELECTRIC WHEEL CHAIR AT BASELINE TO GET AROUND FROM [facility]. SHE ENDOURSES HAVING PAIN IN HER LLE WHICH IS CHRONIC FOR HER. NO OTHER CONCERNS FROM THE PATIENT AT THIS TIME. BED IN THE LOWEST POSTION, CALL LIGHT IN REACH. WILL REPORT TO ONCOMING RN.
[2024-08-31 07:02] VITALS: BP 136/91
[2024-08-31] MEDS ORDERED: Enoxaparin 40 MG/0.4 ML SYR SC SCH (09:00)
[2024-08-31] MEDS ORDERED: Isosorbide Mononitrate 60 MG TABCR PO SCH (09:00)
[2024-08-31] MEDS ORDERED: Fluticasone 0.05% Nasal Spray SCH (09:00)
[2024-08-31] MEDS ORDERED: Cholecalciferol 1000 Unit Tablet (=25MCG) PO SCH (09:00)
[2024-08-31] MEDS ORDERED: Lidocaine 4% 1 Patch TOP SCH (09:00)
[2024-08-31] MEDS ORDERED: DEUTETRABENAZINE 24 MG PO SCH (09:00)
[2024-08-31 15:16] VITALS: BP 128/83
[2024-08-31 15:24] VITALS: BP 127/80
--- NOTE | 2024-08-31 16:49 | NUR ---
ADMIT NOTE PT A&OX4. PT ADMITTED DUE TO ACUTE ON CHRONIC RESP FAILURE. PT IS ON 2L OF O2 WHICH IS HER BASE. PT IS A 1 ASSIST TO BSC. PT IS A PCU TRANSFER. GOT REPORT FROM [facility]. PT TRANSFERED VIA WHEELCHAIR, ABLE TO STAND AND SIT IN BED. PT ORIENTED TO UNIT/FALL PRECAUTION/CALL LIGHT. PT REPORTS NO PAIN. 2 RN SKIN CHECK COMPLETE WITH ADELE. NOTICED YEAST UNDER R ABD SKIN FOLD. REDDNESS ON BOTTOM BUT BLANCHABLE, AND SCABS DUE TO SCRATCHING FROM SWELLING. PT IN BED, BED IN LOWEST POSITION, CALL LIGHT IN REACH. PLAN IS PT LIKELY D/C TOMORROW.
[2024-08-31 19:27] VITALS: BP 127/77
[2024-08-31] MEDS ORDERED: Albuterol 2.5 MG/3 ML VIAL INH SCH (20:10)
[2024-08-31 23:39] VITALS: BP 130/74
--- NOTE | 2024-09-01 02:55 | NUR ---
Redness to groin/pannus/breast folds Spoke with Dr. Jeremias Knapp RE above findings, requesting Nystatin powder. Dr. Knapp verbalized that he will put the order in. Awaiting med...
[2024-09-01] MEDS ORDERED: Miconazole Nitrate 2% 85 GM PWD TOP SCH (03:00)
[2024-09-01 04:26] VITALS: BP 148/78
--- NOTE | 2024-09-01 04:58 | NUR ---
Shift Summary AOx4. Pleasant and cooperative. Calling for needs appropriately. 1P stand pivot to commode, continent. From [facility], baseline sits in a power scooter chair. Tele: NSR 68. @ baseline O2 and maintaining greater than 90% w/ 2L O2 NC. Medicated for mild back pain per EMAR with good effect. Tele: SR 68. Patient had an uneventful night. Plan to d/c back to [facility] in the AM.
[2024-09-01 06:21] LABS: BASOPHILS ABSOLUTE AUTO 0.01 K/mm3 (0.00-0.23); BASOPHILS PERCENT AUTO 0 % (0-2); EOSINOPHILS ABSOLUTE AUTO 0.00 K/mm3 (0.00-0.68); EOSINOPHILS PERCENT AUTO 0 % (0-6); Hematocrit 35.7 % (33.0-51.0); Hemoglobin 11.6 g/dL (11.5-16.0); IMMATURE GRAN ABSOLUTE AUTO 0.14 K/mm3 (0.00-0.10); IMMATURE GRAN PERCENT AUTO 1 % (0-1); LYMPHOCYTES ABSOLUTE AUTO 0.49 K/mm3 (0.84-5.20); LYMPHOCYTES PERCENT AUTO 5 % (21-46); MONOCYTES ABSOLUTE AUTO 0.32 K/mm3 (0.16-1.47); MONOCYTES PERCENT AUTO 3 % (4-13); Mean Corpuscular HGB Conc 32.5 g/dL (31.5-36.5); Mean Corpuscular Volume 91 fL (80-100); NEUTROPHILS ABSOLUTE AUTO 9.16 K/mm3 (1.96-9.15); NEUTROPHILS PERCENT AUTO 91 % (41-73); NRBC ABSOLUTE 0.00 K/mm3 (0.00-0.02); NRBC Auto 0.0 /100 WBC (0.0-0.2); Platelet Count 176 K/mm3 (150-400); RDW Coefficient Variation 14.2 % (11.7-14.2); RDW Standard Deviation 47.4 fL (35.1-46.3)
[2024-09-01 06:46] LABS: Anion Gap 5.0 mmol/L (3-11); Blood Urea Nitrogen 14.0 mg/dL (8-24); CO2, Blood 35.0 mmol/L (21-32); Calcium, Blood 8.8 mg/dL (8.5-10.1); Chloride, Blood 102.0 mmol/L (98-108); Creatinine, Blood 0.5 mg/dL (0.40-1.00); Glucose, Blood 146.0 mg/dL (70-99); Potassium, Blood 3.8 mmol/L (3.5-5.5); Sodium, Blood 138.0 mmol/L (136-145)
[2024-09-01 08:02] VITALS: BP 122/72
[2024-09-01 11:00] VITALS: BP 129/84
[2024-09-01 16:06] VITALS: BP 110/70
--- NOTE | 2024-09-01 17:36 | NUR ---
PT AOX4 AND COOPERATIVE OF CARE. PT RESTING IN BED MOST OF THE SHIFT AND CALLS APPROPRIATELY. NO DISTRESSS NOTED AND CALL LIGHT WITHIN REACH WILL CONTINUE TO MONITOR.
[2024-09-01 19:20] VITALS: BP 122/75
--- NOTE | 2024-09-01 21:47 | NUR ---
LAB REPORTED GRAM POS BASSILI IN BOTH MEDIA FROM A BLOOD CULTURE. REPORTED TO PROVIDER THEY WERE NOT ON ABX. WAS INFORMED BY THE PROVIDER HE WAS GOING TO REVIEW CHART AND MIGHT ADD ORDERS. TIME SPEAKING TO PROVIDER [id number].
--- NOTE | 2024-09-01 22:03 | NUR ---
DR. AVELAR CALLED THIS LN AND REPORTED THAT NO ABX NEEDED AT THIS TIME DUE TO IT ONLY BEING IN ONE CULTURE SAMPLE AND NOT BOTH. HE MAY REPEAT THE BLOOD CULTURE IN THE AM DEPENDING ON SECOND REPORT.
[2024-09-01 23:51] VITALS: BP 145/84
[2024-09-02 03:58] VITALS: BP 161/92
--- NOTE | 2024-09-02 04:33 | NUR ---
SHIFT SUMMARY: Pt is admitted for acute on chronic respiratory failure with hypoxia and is a DNR. is alert and able to make needs known. ADLs have been SBA. denies pain or discomfort when asked. On 2lpm via NC to maintain spo2 greater than 88%. Telly noted sinus in the 80s with no events. See prior notes for critical lab reports.
--- NOTE | 2024-09-02 05:52 | NUR ---
siobhan reported PT dipped into the high 40s a couple of times. she stayed there for a second or two then recovered above 60. when this LN checked on the PT she was resting with eye closed and did not respond to her name being called once. by the time LN was checking on PT with siobhan on voceria, siobhna reported PT had recovered to a rate better than 60.
[2024-09-02 05:56] LABS: BASOPHILS ABSOLUTE AUTO 0.00 K/mm3 (0.00-0.23); BASOPHILS PERCENT AUTO 0 % (0-2); EOSINOPHILS ABSOLUTE AUTO 0.00 K/mm3 (0.00-0.68); EOSINOPHILS PERCENT AUTO 0 % (0-6); Hematocrit 35.2 % (33.0-51.0); Hemoglobin 11.4 g/dL (11.5-16.0); IMMATURE GRAN ABSOLUTE AUTO 0.16 K/mm3 (0.00-0.10); IMMATURE GRAN PERCENT AUTO 2 % (0-1); LYMPHOCYTES ABSOLUTE AUTO 0.48 K/mm3 (0.84-5.20); LYMPHOCYTES PERCENT AUTO 5 % (21-46); MONOCYTES ABSOLUTE AUTO 0.55 K/mm3 (0.16-1.47); MONOCYTES PERCENT AUTO 5 % (4-13); Mean Corpuscular HGB Conc 32.4 g/dL (31.5-36.5); Mean Corpuscular Volume 91 fL (80-100); NEUTROPHILS ABSOLUTE AUTO 9.42 K/mm3 (1.96-9.15); NEUTROPHILS PERCENT AUTO 89 % (41-73); NRBC ABSOLUTE 0.00 K/mm3 (0.00-0.02); NRBC Auto 0.0 /100 WBC (0.0-0.2); Platelet Count 159 K/mm3 (150-400); RDW Coefficient Variation 14.1 % (11.7-14.2); RDW Standard Deviation 47.1 fL (35.1-46.3)
--- NOTE | 2024-09-02 06:10 | NUR ---
Dr Knapp made aware of the HR drops. he gave verbal to hold any beta blockers or calcuim channel blockers this AM.
[2024-09-02 06:46] LABS: Anion Gap 5.0 mmol/L (3-11); Blood Urea Nitrogen 20.0 mg/dL (8-24); CO2, Blood 34.0 mmol/L (21-32); Calcium, Blood 9.0 mg/dL (8.5-10.1); Chloride, Blood 102.0 mmol/L (98-108); Creatinine, Blood 0.59 mg/dL (0.40-1.00); Glucose, Blood 132.0 mg/dL (70-99); Potassium, Blood 3.9 mmol/L (3.5-5.5); Sodium, Blood 137.0 mmol/L (136-145)
[2024-09-02 07:08] VITALS: BP 155/90
[2024-09-02 10:34] VITALS: BP 120/77
[2024-09-02 15:22] VITALS: BP 108/77
--- NOTE | 2024-09-02 17:52 | NUR ---
PT AOX4 AND COOPERATIVE OF CARE. DOING WELL TODAY PT ABLE TO DISCHARGE AT 1750 NO DISTRESS NOTED. PT'S SON DROPPED OFF HOME O2 TANK AND ALL PERSONAL BELONINGS COLLECTED AND SENT WITH PT. PT TRANSPORTED HOME VIA [facility] VIA WHEELCHAIR. [facility] WAS CALLED PRIOR AND SAID THEY WOULD ACCEPT PT TODAY.
== END 2024-09-02 17:50 | disposition home or self-care (01) | DRG 189 ==
LOC: ER 12:01 → PCU 12:12 → MEDS 12:12 → PCU 15:32 → MEDS 08-31 15:19
PROVIDERS: Internal Medicine; Student in an Organized Health Care Education/Training Program; ADMIT Family Medicine
PROC: 5A09357 Assistance with Respiratory Ventilation, Less than 24 Consecutive Hours, Continuous Positive Airway Pressure (ICD-10-PCS; principal; 2024-08-30)
DX: J96.21 Acute and chronic respiratory failure with hypoxia (principal); J44.1 Chronic obstructive pulmonary disease with (acute) exacerbation; J84.9 Interstitial pulmonary disease, unspecified; E87.29 Other acidosis; G24.01 Drug induced subacute dyskinesia; F31.9 Bipolar disorder, unspecified; Z66 Do not resuscitate; E78.5 Hyperlipidemia, unspecified; M81.0 Age-related osteoporosis without current pathological fracture; F41.8 Other specified anxiety disorders; K21.9 Gastro-esophageal reflux disease without esophagitis; J96.22 Acute and chronic respiratory failure with hypercapnia; D72.829 Elevated white blood cell count, unspecified; I50.9 Heart failure, unspecified; I11.0 Hypertensive heart disease with heart failure; Z99.81 Dependence on supplemental oxygen; Z88.0 Allergy status to penicillin; Z91.040 Latex allergy status; Z79.899 Other long term (current) drug therapy; Z79.51 Long term (current) use of inhaled steroids; Z79.52 Long term (current) use of systemic steroids; Z79.82 Long term (current) use of aspirin; Z87.891 Personal history of nicotine dependence
CPT/HCPCS: 36415; 71045; 80048; 80053; 82803; 83605; 83880; 84484; 85025; 87040; 93005; 93010; 93971; 94640; 94660; 94664; 94760; 94762; 99285-25; A9270; J1650; J2919; J7512

== ENCOUNTER 2024-09-23 17:26 | Emergency (ER) | payer MEDICARE, OTHER ==
[~2024-09-23] VITALS: Ht 160 cm; Wt 64.8 kg
[~2024-09-23 17:26] MED LIST changes: +COMBIVENT RESPIM4 G1 PO; +DULCOLAX400 MG/5 M PO; +LIDO700A20 TOP; +LOPE2C PO; +NYSTATIN TOP
[2024-09-23 17:34] VITALS: BP 111/85
[2024-09-23] MEDS ORDERED: Ipratropium/Albuterol SulF 2.5-0.5MG/3 ML Amp INH ONE (17:35)
[2024-09-23] MEDS ORDERED: AZIT250 PO (19:42)
[2024-09-23] MEDS ORDERED: PRED10 PO (19:42)
== END 2024-09-23 20:53 | disposition home or self-care (01) ==
LOC: ER 17:26
DX: J44.1 Chronic obstructive pulmonary disease with (acute) exacerbation (principal); I11.0 Hypertensive heart disease with heart failure; I50.9 Heart failure, unspecified; E78.5 Hyperlipidemia, unspecified; K21.9 Gastro-esophageal reflux disease without esophagitis; M81.0 Age-related osteoporosis without current pathological fracture; Z87.891 Personal history of nicotine dependence; Z99.81 Dependence on supplemental oxygen; Z88.0 Allergy status to penicillin; Z91.040 Latex allergy status; Z79.52 Long term (current) use of systemic steroids; Z79.82 Long term (current) use of aspirin; Z79.899 Other long term (current) drug therapy
CPT/HCPCS: 36415; 71045; 80053; 83605; 99284

== ENCOUNTER 2024-09-27 15:22 | Emergency (ER) | payer MEDICARE, OTHER ==
[~2024-09-27] VITALS: Ht 160 cm; Wt 64.4 kg
[~2024-09-27 15:22] MED LIST changes: +PRED10 PO
[2024-09-27 15:51] LABS: BASOPHILS ABSOLUTE AUTO 0.02 K/mm3 (0.00-0.23); BASOPHILS PERCENT AUTO 0 % (0-2); EOSINOPHILS ABSOLUTE AUTO 0.00 K/mm3 (0.00-0.68); EOSINOPHILS PERCENT AUTO 0 % (0-6); Hematocrit 40.0 % (33.0-51.0); Hemoglobin 12.9 g/dL (11.5-16.0); IMMATURE GRAN ABSOLUTE AUTO 0.06 K/mm3 (0.00-0.10); IMMATURE GRAN PERCENT AUTO 1 % (0-1); LYMPHOCYTES ABSOLUTE AUTO 0.51 K/mm3 (0.84-5.20); LYMPHOCYTES PERCENT AUTO 8 % (21-46); MONOCYTES ABSOLUTE AUTO 0.14 K/mm3 (0.16-1.47); MONOCYTES PERCENT AUTO 2 % (4-13); Mean Corpuscular HGB Conc 32.3 g/dL (31.5-36.5); Mean Corpuscular Volume 93 fL (80-100); NEUTROPHILS ABSOLUTE AUTO 5.84 K/mm3 (1.96-9.15); NEUTROPHILS PERCENT AUTO 89 % (41-73); NRBC ABSOLUTE 0.00 K/mm3 (0.00-0.02); NRBC Auto 0.0 /100 WBC (0.0-0.2); Platelet Count 173 K/mm3 (150-400); RDW Coefficient Variation 14.4 % (11.7-14.2); RDW Standard Deviation 48.6 fL (35.1-46.3)
[2024-09-27] MEDS ORDERED: NS 1,000 ML IV SCH (15:55)
[2024-09-27 16:33] LABS: Alanine Aminotransfer (ALT/SGP 26.0 U/L (12-78); Albumin, Blood 3.6 g/dL (3.4-5.0); Albumin/Globulin Ratio 1.1 (0.8-1.8); Anion Gap 12.0 mmol/L (3-11); Aspartate Aminotrans (AST/SGOT 20.0 U/L (12-37); Bilirubin, Total 0.3 mg/dL (0.1-1.0); Blood Urea Nitrogen 10.0 mg/dL (8-24); CO2, Blood 28.0 mmol/L (21-32); Calcium, Blood 8.9 mg/dL (8.5-10.1); Chloride, Blood 106.0 mmol/L (98-108); Creatinine, Blood 0.6 mg/dL (0.40-1.00); Globulin, Blood 3.4 g/dL (2.2-4.0); Glucose, Blood 171.0 mg/dL (70-99); Potassium, Blood 3.7 mmol/L (3.5-5.5); Sodium, Blood 142.0 mmol/L (136-145); Total Protein, Blood 7.0 g/dL (6.4-8.2)
[2024-09-27 18:54] VITALS: BP 129/84
== END 2024-09-27 19:38 | disposition home or self-care (01) ==
LOC: ER 15:22
PROVIDERS: Emergency Medicine
DX: J44.9 Chronic obstructive pulmonary disease, unspecified (principal); K21.9 Gastro-esophageal reflux disease without esophagitis; I11.0 Hypertensive heart disease with heart failure; I50.9 Heart failure, unspecified; Z88.0 Allergy status to penicillin; Z91.040 Latex allergy status; Z79.899 Other long term (current) drug therapy; Z87.891 Personal history of nicotine dependence
CPT/HCPCS: 71045; 80053; 83880; 84484; 85025; 93005; 93010; 99285-25; J7030